=== PATIENT | male | born 1980 | race Caucasian/White ===

== ENCOUNTER 2017-07-15 23:02 | Inpatient (IN) | payer SELFPAY ==
[~2017-07-15] VITALS: Ht 175.3 cm; Wt 82.5 kg
[~2017-07-15 23:02] MED LIST: Z.0.NO CURRENT MEDS
[2017-07-15 23:06] VITALS: BP 134/89; PULSE 117; RESP 16; TEMP 97.7; O2SAT 95
[2017-07-15 23:42] VITALS: BP 139/97; PULSE 93; RESP 18; O2SAT 97
[2017-07-15 23:51] VITALS: O2SAT 96
[2017-07-16] VITALS (13 sets, daily range): BP systolic 95–132; BP diastolic 63–93; PULSE 76–97; RESP 16–29; TEMP 98–98.8; O2SAT 92–99
[2017-07-16] MEDS ORDERED: SODIUM CHLORIDE 0.9% FLUSH 10 ML FLUSH IVF PRN
[2017-07-16 00:18] LABS: AUTOMATED NEUTROPHIL # 2.5 TH/MM3 (1.8-7.7); BASOPHIL # 0.1 TH/MM3 (0-0.2); BASOPHIL % 1.3 % (0.0-2.0); EOSINOPHIL # 0.4 TH/MM3 (0-0.4); EOSINOPHIL % 6.8 % (0.0-4.0); HEMATOCRIT 48.2 % (39.0-51.0); LYMPH % 34.7 % (9.0-44.0); LYMPHOCYTE # 1.9 TH/MM3 (1.0-4.8); MEAN CELL VOLUME 95.9 FL (80.0-100.0); MEAN CORPUSCULAR HEMOGLOBIN 33.9 PG (27.0-34.0); MEAN CORPUSCULAR HGB CONC 35.3 % (32.0-36.0); MONO % 11.7 % (0.0-8.0); MONOCYTE # 0.7 TH/MM3 (0-0.9); NEUT % 45.5 % (16.0-70.0); PLATELET COUNT 238 TH/MM3 (150-450); RED BLOOD COUNT 5.02 MIL/MM3 (4.50-5.90); RED CELL DISTRIBUTION WIDTH 13.6 % (11.6-17.2); WHITE BLOOD COUNT 5.6 TH/MM3 (4.0-11.0)
[2017-07-16 00:22] LABS: BILIRUBIN, URINE NEG (NEG); BLOOD, URINE NEG (NEG); GLUCOSE,URINE NEG (NEG); KETONE, URINE NEG (NEG); NITRITE,URINE NEG (NEG); PH, URINE 5.5 (5.0-8.5); URINE COLOR LIGHT-YELLOW (YELLW/STRAW); URINE LEUKOCYTE ESTERASE NEG (NEG)
[2017-07-16 00:38] LABS: ALBUMIN 3.9 GM/DL (3.4-5.0); ALT (GPT) 50 U/L (12-78); AST (GOT) 32 U/L (15-37); BICARBONATE 23.7 MEQ/L (21.0-32.0); BLOOD UREA NITROGEN 5 MG/DL (7-18); CALCIUM 8.1 MG/DL (8.5-10.1); CHLORIDE 107 MEQ/L (98-107); CREATININE 0.84 MG/DL (0.60-1.30); GLOMERULAR FILTRATION RATE 103 ML/MIN (>89); GLUCOSE,RANDOM 104 MG/DL (74-106); SODIUM (NA) 140 MEQ/L (136-145)
[2017-07-16 00:41] LABS: ALKALINE PHOSPHATASE 69 U/L (45-117); TOTAL BILIRUBIN ADULT 0.4 MG/DL (0.2-1.0); TOTAL PROTEIN 7.8 GM/DL (6.4-8.2)
[2017-07-16 00:44] LABS: ACETAMINOPHEN LESS THAN 2.0 MCG/ML (10.0-30.0)
[2017-07-16] MEDS ORDERED: DEXT 5%-NACL 0.9% 1000 ML INJ 1,000 ML IV SCH (00:45)
[2017-07-16] MEDS ORDERED: SODIUM CHLOR 0.9% 1000 ML INJ 1,000 ML IV ONE (00:45)
[2017-07-16] MEDS ORDERED: PANTOPRAZOLE SODIUM 40 MG VIAL IV PUSH ONE (01:00)
--- NOTE | 2017-07-16 01:56 | PD ---
HPI Chief Complaint: OD/ Ingestion Time Seen by Provider: 23:49 Travel History International Travel<30 days: No Contact w/Intl Traveler<30days: No Traveled to known affect area: No History of Present Illness HPI Patient is a 36-year-old male who lives with his father who is a quadriplegic who has lots of isopropyl alcohol according to the patient and tonight the patient decided to drink he says 3 bottles of 70% isopropyl alcohol. He says he did it because he was depressed and thinking of hurting himself. He is awake alert denies vomiting no obvious GI injury no obvious obtunded state his intoxicated but able to converse and tell me the story of his ingestion. Denies coingestion PFSH Past Medical History Medical History: Denies Significant Hx Diabetes: No Diminished Hearing: Yes ([facility] RIGHT SIDE) Immunizations Current: Yes Past Surgical History Appendectomy: Yes (age 16) Social History Alcohol Use: Yes Tobacco Use: Yes (05/25-1 PPD) Substance Use: Yes (MARIJUANA) Allergies-Medications (Allergen,Severity, Reaction): Coded Allergies: No Known Allergies (Unverified Adverse Reaction, Unknown, 07/15/17) Reported Meds & Prescriptions Reported Meds & Active Scripts Active No Active Prescriptions or Reported Medications Review of Systems Except as stated in HPI: all other systems reviewed are Neg Physical Exam Narrative GENERAL: disheveled hair reddened face slurring SKIN: Warm and dry. warm red face HEAD: Atraumatic. Normocephalic. EYES: Pupils equal and round. No scleral icterus.+ injection . ENT: No nasal bleeding or discharge. Mucous membranes pink and moist. NECK: Trachea midline. No JVD. CARDIOVASCULAR: Regular rate and rhythm. RESPIRATORY: No accessory muscle use. Clear to auscultation. Breath sounds equal bilaterally. GASTROINTESTINAL: Abdomen soft, non-tender, nondistended. Hepatic and splenic margins not palpable. no active vomit or signs of GI tract injury from Isopropyl MUSCULOSKELETAL: Extremities without clubbing, cyanosis, or edema. No obvious deformities. NEUROLOGICAL: Awake and alert. No obvious cranial nerve deficits. Motor grossly within normal limits. Five out of 5 muscle strength in the arms and legs. slow slurred speech. PSYCHIATRIC: intox conversant depressed , sad affect Data Data Last Documented VS Vital Signs Date Time Temp Pulse Resp B/P (MAP) Pulse Ox O2 Delivery O2 Flow Rate FiO2 2/23/18 02:30 92 16 95/63 (74) 92 Room Air 07/15/17 23:06 97.7 Orders Orders Complete Blood Count With Diff (07/15/17 23:49) Comprehensive Metabolic Panel (07/15/17 23:49) Osmolality,Serum (07/15/17 23:49) Urinalysis - C+S If Indicated (07/15/17 23:49) Iv Access Insert/Monitor (07/15/17 23:49) Ecg Monitoring (07/15/17 23:49) Oximetry (07/15/17 23:49) Sodium Chloride 0.9% Flush (Ns Flush) (07/16/17 00:00) Drug Screen, Random Urine (07/15/17 23:49) Alcohol (Ethanol) (07/15/17 23:49) Salicylates (Aspirin) (07/15/17 23:49) Tylenol (Acetaminophen) (07/15/17 23:49) Sodium Chlor 0.9% 1000 Ml Inj (Ns 1000 M (07/16/17 00:45) Dext 5%-Nacl 0.9% 1000 Ml Inj (D5w-Ns 10 (07/16/17 00:45) Pantoprazole Inj (Protonix Inj) (07/16/17 01:00) Admit Order (Ed Use Only) (07/16/17 02:56) Labs Laboratory Tests Test 07/15/17 00:00 07/15/17 23:55 White Blood Count 5.6 TH/MM3 Red Blood Count 5.02 MIL/MM3 Hemoglobin 17.0 GM/DL Hematocrit 48.2 % Mean Corpuscular Volume 95.9 FL Mean Corpuscular Hemoglobin 33.9 PG Mean Corpuscular Hemoglobin Concent 35.3 % Red Cell Distribution Width 13.6 % Platelet Count 238 TH/MM3 Mean Platelet Volume 7.0 FL Neutrophils (%) (Auto) 45.5 % Lymphocytes (%) (Auto) 34.7 % Monocytes (%) (Auto) 11.7 % Eosinophils (%) (Auto) 6.8 % Basophils (%) (Auto) 1.3 % Neutrophils # (Auto) 2.5 TH/MM3 Lymphocytes # (Auto) 1.9 TH/MM3 Monocytes # (Auto) 0.7 TH/MM3 Eosinophils # (Auto) 0.4 TH/MM3 Basophils # (Auto) 0.1 TH/MM3 CBC Comment DIFF FINAL Differential Comment Blood Urea Nitrogen 5 MG/DL Creatinine 0.84 MG/DL Random Glucose 104 MG/DL Total Protein 7.8 GM/DL Albumin 3.9 GM/DL Calcium Level 8.1 MG/DL Alkaline Phosphatase 69 U/L Aspartate Amino Transf (AST/SGOT) 32 U/L Alanine Aminotransferase (ALT/SGPT) 50 U/L Total Bilirubin 0.4 MG/DL Sodium Level 140 MEQ/L Potassium Level 3.7 MEQ/L Chloride Level 107 MEQ/L Carbon Dioxide Level 23.7 MEQ/L Anion Gap 9 MEQ/L Estimat Glomerular Filtration Rate 103 ML/MIN Serum Osmolality 387 MOSM/KG Salicylates Level 2.5 MG/DL Acetaminophen Level LESS THAN 2.0 MCG/ML Ethyl Alcohol Level 376 MG/DL Urine Color LIGHT-YELLOW Urine Turbidity CLEAR Urine pH 5.5 Urine Specific [place] 1.006 Urine Protein NEG mg/dL Urine Glucose (UA) NEG mg/dL Urine Ketones NEG mg/dL Urine Occult Blood NEG Urine Nitrite NEG Urine Bilirubin NEG Urine Urobilinogen LESS THAN 2.0 MG/DL Urine Leukocyte Esterase NEG Urine RBC 1 /hpf Urine WBC LESS THAN 1 /hpf Microscopic Urinalysis Comment CULT NOT INDICATED Urine Opiates Screen NEG Urine Barbiturates Screen NEG Urine Amphetamines Screen NEG Urine Benzodiazepines Screen NEG Urine Cocaine Screen NEG Urine Cannabinoids Screen POS [facility] Medical Decision Making Medical Screen Exam Complete: Yes Emergency Medical Condition: Yes Differential Diagnosis isopropyl vs ethonal vs ethylene glycol vs methanol intox or sedative co-ingestion other Narrative Course Osmalality on serum 387 elevated and etoh alos high , pt has no signs of GI injury no vomit no hemataemesis , no obtunded state no need for airway management at this time , NS x 2 liters and protonix IV admit to assure no worsening of GI or mental status , ICU admit Diagnosis Primary Impression: Isopropyl alcohol poisoning Admitting Information Admitting Physician Requests: Admit (icu - voda) Scripts No Active Prescriptions or Reported Meds Justin Romero MD Jul 16, 2017 01:56
[2017-07-16] MEDS ORDERED: MAGNESIUM HYDROXIDE SUSP 30 ML CUP PO PRN (03:45)
[2017-07-16] MEDS ORDERED: MISCELLANEOUS NURSING INFORMATION XX SCH (03:45)
[2017-07-16] MEDS ORDERED: LACTULOSE SYRUP 20 GM/30 ML CUP PO PRN (03:45)
[2017-07-16] MEDS ORDERED: ONDANSETRON HCL 4 MG/2 ML VIAL IV PUSH PRN (03:45)
[2017-07-16] MEDS ORDERED: RESP: ALBUTEROL 2.5 MG/IPRATROPIUM 0.5 MG NEB (PRN) INH (03:45)
[2017-07-16] MEDS ORDERED: BISACODYL 10 MG SUPP RECTAL PRN (03:45)
[2017-07-16] MEDS ORDERED: ACETAMINOPHEN 325 MG TAB PO PRN (03:45)
[2017-07-16] MEDS ORDERED: SENNOSIDES 8.6 MG TAB PO PRN (03:45)
[2017-07-16] MEDS ORDERED: CHLORHEXIDINE GLUCONATE 2 % 1 PACK (2 CLOTHS) TOP PRN (03:45)
[2017-07-16] MEDS ORDERED: SODIUM CHLORIDE 0.9% FLUSH 10 ML FLUSH IV FLUSH PRN (03:45)
[2017-07-16] MEDS ORDERED: TEMAZEPAM 15 MG CAP PO PRN (03:45)
[2017-07-16] MEDS ORDERED: CHLORHEXIDINE GLUCONATE 2 % 1 PACK (2 CLOTHS) TOP SCH (04:00)
[2017-07-16] MEDS: SODIUM CHLOR 0.9% 1000 ML INJ 1,000 ML IV SCH ×3 (04:03→14:26)
[2017-07-16] MEDS ORDERED: LORazepam 2 MG/ML VIAL IV PUSH PRN ×4 (04:30)
[2017-07-16] MEDS ORDERED: FLUMAZENIL 0.5 MG/5 ML VIAL IV PUSH PRN (04:30)
[2017-07-16] MEDS ORDERED: LORazepam 1 MG TAB PO PRN (04:30)
[2017-07-16] MEDS ORDERED: LORazepam 2 MG TAB PO PRN (04:30)
--- NOTE | 2017-07-16 04:52 | HHI.HP ---
[facility] Service Critical Care Medicine Primary Care Physician Unknown Admission Diagnosis Isopropyl OVERDOSE Diagnosis: Travel History International Travel<30 Days: No Contact w/Intl Traveler <30 Da: No Traveled to Known Affected Are: No History of Present Illness 36-year-old male who lives with his father who is a quadriplegic who has lots of isopropyl alcohol according to the patient . The patient decided tonight to bring about 3 bottles of 70% isopropyl alcohol. He says he did it because he was depressed and thinking of hurting himself. He is awake alert denies vomiting no obvious GI injury no obvious obtunded state his intoxicated but able to converse and tell me the story of his ingestion. Denies coingestion. Review of Systems Constitutional: DENIES: Diaphoretic episodes, Fatigue, Fever, Weight gain, Weight loss, Chills, Dizziness, Change in appetite, Night Sweats Endocrine: DENIES: Heat/cold intolerance, Polydipsia, Polyuria, Polyphagia Eyes: DENIES: Blurred vision, Diplopia, Eye inflammation, Eye pain, Vision loss , Photosensitivity, Double Vision Ears, nose, mouth, throat: DENIES: Tinnitus, Hearing loss, Vertigo, Nasal discharge, Oral lesions, Throat pain, Hoarseness, Ear Pain, Running Nose, Epistaxis, Sinus Pain, Toothache, Odynophagia Respiratory: DENIES: Apneas, Cough, Snoring, Wheezing, Hemoptysis, Sputum production, Shortness of breath Cardiovascular: DENIES: Chest pain, Palpitations, Syncope, Dyspnea on Exertion , PND, Lower Extremity Edema, Orthopnea, Claudication Gastrointestinal: DENIES: Abdominal pain, Black stools, Bloody stools, Constipation, Diarrhea, Nausea, Vomiting, Difficulty Swallowing, Anorexia Genitourinary: DENIES: Sexual dysfunction, Urinary frequency, Urinary incontinence, Urgency, Hematuria, Dysuria, Nocturia, Penile Discharge, Testicular Pain, Testicular Swelling Musculoskeletal: DENIES: Joint pain, Muscle aches, Stiffness, Joint Swelling, Back pain, Neck pain Integumentary: DENIES: Abnormal pigmentation, Nail changes, Pruritus, Rash Hematologic/lymphatic: DENIES: Bruising, Lymphadenopathy Immunologic/allergic: DENIES: Eczema, Urticaria Neurologic: DENIES: Abnormal gait, Headache, Localized weakness, Paresthesias, Seizures, Speech Problems, Tremor, Poor Balance Psychiatric: COMPLAINS OF: Anxiety, Depression, Suicidal Ideation, DENIES: Confusion, Mood changes, Hallucinations, Agitation, Homicidal Ideation, Delusions Past Family Social History Allergies: Coded Allergies: No Known Allergies (Unverified Adverse Reaction, Unknown, 07/15/17) Past Medical History No significant past medical history Past Surgical History Appendectomy at the age of 16 Reported Medications Reported Meds & Active Scripts Active No Active Prescriptions or Reported Medications Active Ordered Medications Current Medications Medications (Trade) Dose Ordered Sig/Sherrill Route PRN Reason Start Time Stop Time Status Last Admin Dose Admin Sodium Chloride 1,000 ml @ 184 mls/hr Q5H27M IV 07/16/17 03:32 07/16/17 04:03 Sodium Chloride (NS Flush) 2 ml UNSCH PRN IV FLUSH FLUSH AFTER USING IV ACCESS 07/16/17 03:45 Sodium Chloride (NS Flush) 2 ml BID IV FLUSH 07/16/17 09:00 Acetaminophen (Tylenol) 650 mg Q6H PRN PO PAIN 1-10 AND/OR FEVER >101F 07/16/17 03:45 Famotidine (Pepcid Inj) 20 mg Q12HR IV PUSH 07/16/17 09:00 Ondansetron HCl (Zofran Inj) 4 mg Q6H PRN IV PUSH NAUSEA OR VOMITING 07/16/17 03:45 Temazepam (Restoril) 15 mg HS PRN PO INSOMNIA 07/16/17 03:45 Albuterol/ Ipratropium (Duoneb Neb) 1 ampule Q2HR NEB PRN INH WHEEZING 07/16/17 03:45 Heparin Sodium (Porcine) (Heparin Inj) 5,000 units Q8HR SQ 07/16/17 06:00 Miscellaneous Information 1 Q361D XX 07/16/17 03:45 07/16/17 03:45 Chlorhexidine Gluconate (Chlorhexidine 2% Cloth) 3 pack Taper DAILY@04 TOP 07/16/17 04:00 07/12/18 03:59 07/16/17 04:00 Chlorhexidine Gluconate (Chlorhexidine 2% Cloth) 3 pack UNSCH PRN TOP HYGIENIC CARE 07/16/17 03:45 Senna/Docusate Sodium (Malathi-Colace) 1 tab BID PO 07/16/17 09:00 Magnesium Hydroxide (Milk Of Magnesia Liq) 30 ml Q12H PRN PO Mild constipation 07/16/17 03:45 Sennosides (Senokot) 17.2 mg Q12H PRN PO Moderate constipation 07/16/17 03:45 Bisacodyl (Dulcolax Supp) 10 mg DAILY PRN RECTAL SEVERE CONSITIPATION 07/16/17 03:45 Lactulose (Lactulose Liq) 30 ml DAILY PRN PO SEVERE CONSITIPATION 07/16/17 03:45 Multivitamins 10 ml/Thiamine HCl 100 mg/Folic Acid 1 mg/Dextrose/ Sodium Chloride 511.2 ml @ 125 mls/hr Q24H IV 07/16/17 06:00 Flumazenil (Romazicon Inj) 0.2 mg Q1M PRN IV PUSH SEE LABEL COMMENTS 07/16/17 04:30 Lorazepam (Ativan) 1 mg Q4H PRN PO CIWA 8 - 10 07/16/17 04:30 Lorazepam (Ativan Inj) 1 mg Q4H PRN IV PUSH CIWA 8 - 10 07/16/17 04:30 Lorazepam (Ativan) 2 mg Q2H PRN PO CIWA 11-14 07/16/17 04:30 Lorazepam (Ativan Inj) 2 mg Q2H PRN IV PUSH CIWA 11-14 07/16/17 04:30 Lorazepam (Ativan Inj) 2 mg Q1H PRN IV PUSH CIWA 15-20 07/16/17 04:30 Lorazepam (Ativan Inj) 2 mg Q15M PRN IV PUSH CIWA > 20 07/16/17 04:30 Family History Family history significant for coronary artery disease, father is quadriplegic post trauma Social History Alcohol Use: Yes Tobacco Use: Yes (1/2-1 PPD) Substance Use: Yes (MARIJUANA) Physical Exam Vital Signs Vital Signs Date Time Temp Pulse Resp B/P (MAP) Pulse Ox O2 Delivery O2 Flow Rate FiO2 07/16/17 04:25 82 07/16/17 04:24 83 14 117/72 (87) 96 07/16/17 04:23 98.0 82 16 124/78 (93) 98 07/16/17 03:52 93 07/16/17 03:30 97 16 102/63 (76) 97 Room Air 07/16/17 02:30 92 16 95/63 (74) 92 Room Air 07/16/17 01:28 85 18 121/78 (92) 93 Room Air 07/15/17 23:51 96 Room Air 07/15/17 23:42 93 18 139/97 (111) 97 Room Air 07/15/17 23:06 97.7 117 16 134/89 (104) 95 Physical Exam GENERAL: Well-nourished, well-developed patient. SKIN: Warm and dry. HEAD: Normocephalic. EYES: No scleral icterus. No injection or drainage. NECK: Supple, trachea midline. No JVD or lymphadenopathy. CARDIOVASCULAR: Regular rate and rhythm without murmurs, gallops, or rubs. RESPIRATORY: Breath sounds equal bilaterally. No accessory muscle use. GASTROINTESTINAL: Abdomen soft, non-tender, nondistended. MUSCULOSKELETAL: No cyanosis, or edema. BACK: Nontender without obvious deformity. NEURO EXAM: GCS: 15 Mental Status: The patient is alert and oriented to person, place, and time with normal speech. Cranial Nerves: Visual acuity intact bilaterally. Visual dunbar normal in all quadrants. Pupils are round, reactive to light. Extraocular movements are intact without ptosis. Hearing is normal bilaterally. Voice is normal. Tongue protrudes midline and moves symmetrically. Laboratory Laboratory Tests Test 07/15/17 23:55 Urine Color LIGHT-YELLOW Urine Turbidity CLEAR Urine pH 5.5 Urine Specific [place] 1.006 Urine Protein NEG Urine Glucose (UA) NEG Urine Ketones NEG Urine Occult Blood NEG Urine Nitrite NEG Urine Bilirubin NEG Urine Urobilinogen LESS THAN 2.0 Urine Leukocyte Esterase NEG Urine RBC 1 Urine WBC LESS THAN 1 Microscopic Urinalysis Comment CULT NOT INDICATED Urine Opiates Screen NEG Urine Barbiturates Screen NEG Urine Amphetamines Screen NEG Urine Benzodiazepines Screen NEG Urine Cocaine Screen NEG Urine Cannabinoids Screen POS Result Diagram: 07/15/17 0000 07/15/17 0000 Septic Shock Reassessment Septic shock perfusion: reassessment completed Caprini VTE Risk Assessment Caprini VTE Risk Assessment: Mod/High Risk (score >= 2) Caprini Risk Assessment Model Point Value = 1 Point Value = 2 Point Value = 3 Point Value = 5 Age 41-60 Minor surgery BMI > 25 kg/m2 Swollen legs Varicose veins or History of unexplained or recurrent spontaneous Oral contraceptives or hormone replacement Sepsis (< 1 month) Serious lung disease, including pneumonia (< 1 month) Abnormal pulmonary function Acute myocardial infarction Congestive heart failure (< 1 month) History of inflammatory bowel disease Medical patient at bed rest Age 61-74 Arthroscopic surgery Major open surgery (> 45 min) Laparoscopic surgery (> 45 min) Malignancy Confined to bed (> 72 hours) Immobilizing plaster cast Central venous access Age >= 75 History of VTE Family history of VTE Factor V Leiden Prothrombin [id number] Lupus anticoagulant Anticardiolipin antibodies Elevated serum homocysteine Heparin-induced thrombocytopenia Other congenital or acquired thrombophilia Stroke (< 1 month) Elective arthroplasty Hip, pelvis, or leg fracture Acute spinal cord injury (< 1 month) Prophylaxis Regimen Total Risk Factor Score Risk Level Prophylaxis Regimen 0-1 Low Early ambulation 2 Moderate Order ONE of the following: *Sequential Compression Device (SCD) *Heparin 5000 units SQ BID 3-4 Higher Order ONE of the following medications: *Heparin 5000 units SQ TID *Enoxaparin/Lovenox 40 mg SQ daily (WT < 150 kg, CrCl > 30 mL/min) *Enoxaparin/Lovenox 30 mg SQ daily (WT < 150 kg, CrCl > 10-29 mL/min) *Enoxaparin/Lovenox 30 mg SQ BID (WT < 150 kg, CrCl > 30 mL/min) AND/OR *Sequential Compression Device (SCD) 5 or more Highest Order ONE of the following medications: *Heparin 5000 units SQ TID (Preferred with Epidurals) *Enoxaparin/Lovenox 40 mg SQ daily (WT < 150 kg, CrCl > 30 mL/min) *Enoxaparin/Lovenox 30 mg SQ daily (WT < 150 kg, CrCl > 10-29 mL/min) *Enoxaparin/Lovenox 30 mg SQ BID (WT < 150 kg, CrCl > 30 mL/min) AND *Sequential Compression Device (SCD) Assessment and Plan Assessment and Plan Isopropyl alcohol intoxication - Admit to ICU - Monitor serum osmolarity - IV fluid hydration - Monitor for neurological signs of stupor - Frequent electrolytes and replace per ICU protocol - Monitor for alcohol withdrawal - CIWA protocol - Supportive care Suicidal intention with depressions - Mao act - Psychiatry evaluation DVT GI prophylaxis - Teds SCDs - Subcutaneous heparin - Pepcid Critical Care: The total critical care time was 35 minutes. Time to perform other separately billable procedures was not included in the critical care time. Nathaniel Lopez MD Jul 16, 2017 4:52 am
[2017-07-16] MEDS: HEPARIN SODIUM - SQ 10,000 UNITS/ML VIAL SQ SCH ×2 (05:24→14:08)
[2017-07-16] MEDS ORDERED: MULTIVITAMIN INJ 10 ML, THIAMINE INJ 100 MG, FOLIC ACID INJ 1 MG in DEXT 5%-NACL 0.45% ... IV SCH (06:00)
[2017-07-16] MEDS ORDERED: FAMOTIDINE 20 MG/2 ML VIAL IV PUSH SCH (09:00)
[2017-07-16] MEDS ORDERED: DOCUSATE SODIUM 50 MG/SENNA 8.6 MG TAB PO SCH (09:00)
[2017-07-16] MEDS ORDERED: SODIUM CHLORIDE 0.9% FLUSH 10 ML FLUSH IV FLUSH SCH (09:00)
--- NOTE | 2017-07-16 12:03 | PD.PSY.CON ---
Provisional Diagnosis Admission Date Jul 16, 2017 at 02:59 [place] I. Alcohol induced mood disorder, Alcohol use disorder, cannabis use disorder, history of depression [place] II. Unspecified personality disorder History of Present Illness Service Psychiatry Consult Requested By Critical care team Reason for Consult On the Cavanaugh act due to suicidal ideation Primary Care Physician Unknown HPI The patient is a 36-year-old man, domiciled alone in [facility], single, unemployed, with psychiatric history of depression, about 3 previous psychiatric hospitalizations related with alcohol, self cutting behavior, he lives with his father who is a quadriplegic who has lots of isopropyl alcohol according to the patient . The patient decided tonight to bring about 3 bottles of 70% isopropyl alcohol. Consulted to psychiatry to address potential suicidal attempt. On psychiatric evaluation today the patient reports feeling much better. He denies having any pain. He says that previously he was having a lot of headache and chest pain. But now is better. Patient reports that he has been feeling depressed, due to several problems including homelessness, economic oh issues, family issues. However, he denies suicidal and homicidal ideation, he denies visual and auditory hallucinations. The patient reports that his recent use of isopropyl alcohol had to be with the fact that he did not have any money to drink more alcohol "and when I cannot drink alcohol at would really wherever I find". Patient reports drinking about 18 beers per day. He states that he first beer is a 5 AM in the morning. Patient reports history of withdrawal, seizures, DTs. He also has been in multiple detox or rehabs. He is fully oriented 3, logical, coherent and relevant. Review of Systems Constitutional: DENIES: Diaphoretic episodes, Fatigue, Fever, Weight gain, Weight loss, Chills, Dizziness, Change in appetite, Night Sweats Endocrine: DENIES: Heat/cold intolerance, Polydipsia, Polyuria, Polyphagia Eyes: DENIES: Blurred vision, Diplopia, Eye inflammation, Eye pain, Vision loss , Photosensitivity, Double Vision Ears, nose, mouth, throat: DENIES: Tinnitus, Hearing loss, Vertigo, Nasal discharge, Oral lesions, Throat pain, Hoarseness, Ear Pain, Running Nose, Epistaxis, Sinus Pain, Toothache, Odynophagia Respiratory: DENIES: Apneas, Cough, Snoring, Wheezing, Hemoptysis, Sputum production, Shortness of breath Cardiovascular: DENIES: Chest pain, Palpitations, Syncope, Dyspnea on Exertion , PND, Lower Extremity Edema, Orthopnea, Claudication Gastrointestinal: DENIES: Abdominal pain, Black stools, Bloody stools, Constipation, Diarrhea, Nausea, Vomiting, Difficulty Swallowing, Anorexia Genitourinary: DENIES: Sexual dysfunction, Urinary frequency, Urinary incontinence, Urgency, Hematuria, Dysuria, Nocturia, Penile Discharge, Testicular Pain, Testicular Swelling Musculoskeletal: DENIES: Joint pain, Muscle aches, Stiffness, Joint Swelling, Back pain, Neck pain Integumentary: DENIES: Abnormal pigmentation, Nail changes, Pruritus, Rash Hematologic/lymphatic: DENIES: Bruising, Lymphadenopathy Immunologic/allergic: DENIES: Eczema, Urticaria Neurologic: DENIES: Abnormal gait, Headache, Localized weakness, Paresthesias, Seizures, Speech Problems, Tremor, Poor Balance Psychiatric: DENIES: Anxiety, Confusion, Mood changes, Depression, Hallucinations, Agitation, Suicidal Ideation, Homicidal Ideation, Delusions Past Family Social History Coded Allergies: No Known Allergies (Unverified Adverse Reaction, Unknown, 07/15/17) No Active Prescriptions or Reported Meds Current Medications Medications (Trade) Dose Ordered Sig/Sherrill Route Start Time Stop Time Status Last Admin Sodium Chloride 1,000 ml @ 184 mls/hr Q5H27M IV 07/16/17 03:32 07/16/17 10:14 (NS Flush) 2 ml UNSCH PRN IV FLUSH 07/16/17 03:45 (NS Flush) 2 ml BID IV FLUSH 07/16/17 09:00 07/16/17 10:14 (Tylenol) 650 mg Q6H PRN PO 07/16/17 03:45 07/16/17 10:13 (Pepcid Inj) 20 mg Q12HR IV PUSH 07/16/17 09:00 07/16/17 10:14 (Zofran Inj) 4 mg Q6H PRN IV PUSH 07/16/17 03:45 07/16/17 10:26 (Restoril) 15 mg HS PRN PO 07/16/17 03:45 (Duoneb Neb) 1 ampule Q2HR NEB PRN INH 07/16/17 03:45 (Heparin Inj) 5,000 units Q8HR SQ 07/16/17 06:00 07/16/17 05:24 Miscellaneous Information 1 Q361D XX 07/16/17 03:45 07/16/17 03:45 (Chlorhexidine 2% Cloth) 3 pack Taper DAILY@04 TOP 07/16/17 04:00 07/12/18 03:59 07/16/17 04:00 (Chlorhexidine 2% Cloth) 3 pack UNSCH PRN TOP 07/16/17 03:45 (Malathi-Colace) 1 tab BID PO 07/16/17 09:00 (Milk Of Magnesia Liq) 30 ml Q12H PRN PO 07/16/17 03:45 (Senokot) 17.2 mg Q12H PRN PO 07/16/17 03:45 (Dulcolax Supp) 10 mg DAILY PRN RECTAL 07/16/17 03:45 (Lactulose Liq) 30 ml DAILY PRN PO 07/16/17 03:45 Multivitamins 10 ml/Thiamine HCl 100 mg/Folic Acid 1 mg/Dextrose/ Sodium Chloride 511.2 ml @ 125 mls/hr Q24H IV 07/16/17 06:00 07/16/17 05:24 (Romazicon Inj) 0.2 mg Q1M PRN IV PUSH 07/16/17 04:30 (Ativan) 1 mg Q4H PRN PO 07/16/17 04:30 (Ativan Inj) 1 mg Q4H PRN IV PUSH 07/16/17 04:30 07/16/17 10:45 (Ativan) 2 mg Q2H PRN PO 07/16/17 04:30 (Ativan Inj) 2 mg Q2H PRN IV PUSH 07/16/17 04:30 (Ativan Inj) 2 mg Q1H PRN IV PUSH 07/16/17 04:30 (Ativan Inj) 2 mg Q15M PRN IV PUSH 07/16/17 04:30 Family Psych History Family psychiatric history Social History Patient was born in [place], he doesn't [place] with his father, his single , unemployed, highest level of education is GED Patient's Strengths (min. 2) Verbal communication Physical Exam Vital Signs Vital Signs Date Time Temp Pulse Resp B/P (MAP) Pulse Ox O2 Delivery O2 Flow Rate FiO2 07/16/17 11:23 18 07/16/17 10:00 76 07/16/17 08:00 98.5 103/65 (78) 99 2/23/18 03:30 Room Air I/O 07/16/17 07/16/17 07/17/17 08:00 16:00 00:00 Intake Total 1250 ml Output Total 0 ml Balance 1250 ml Lab Results Test 07/15/17 23:55 07/16/17 04:25 Urine Color LIGHT-YELLOW Urine Turbidity CLEAR Urine pH 5.5 Urine Specific [place] 1.006 Urine Protein NEG mg/dL Urine Glucose (UA) NEG mg/dL Urine Ketones NEG mg/dL Urine Occult Blood NEG Urine Nitrite NEG Urine Bilirubin NEG Urine Urobilinogen LESS THAN 2.0 MG/DL Urine Leukocyte Esterase NEG Urine RBC 1 /hpf Urine WBC LESS THAN 1 /hpf Microscopic Urinalysis Comment CULT NOT INDICATED Urine Opiates Screen NEG Urine Barbiturates Screen NEG Urine Amphetamines Screen NEG Urine Benzodiazepines Screen NEG Urine Cocaine Screen NEG Urine Cannabinoids Screen POS Nasal Screen MRSA (PCR) MRSA NOT DETECTED Mental Status Examination Appearance: Appropriate Consciousness: Alert Orientation: x4 Motor Activity: Normal gait Speech: Unremarkable Language: Adequate Fund of Knowledge: Adequate Attention and Concentration: Adequate Memory: Unremarkable Mood: Appropriate Affect: Appropriate Thought Process & Associations: Intact Thought Content: Appropriate Hallucination Type: None Delusion Type: None Suicidal Ideation: No Suicidal Plan: No Suicidal Intention: No Homicidal Ideation: No Homicidal Plan: No Homicidal Intention: No Insight: Adequate Judgment: Adequate Assessment & Plan Problem List: (1) Alcohol abuse with alcohol-induced mood disorder ICD Codes: F10.14 - Alcohol abuse with alcohol-induced mood disorder Assessment & Plan: On psychiatric evaluation today the patient does not present significant, concerning symptomatology of depression, anxiety or psychosis that require an immediate psychiatric intervention. His current suicidal statement and reported depression is worse for the result of chronic registered medical assistant alcohol abuse and a recent alcohol intoxication. The patient really benefit of a detox or comprehensive rehabilitation. He does not meet criteria for involuntary psychiatric admission at this moment. Continue CIWA. Motivation and psychoeducation provided. Cavanaugh act will be lifted. Assessment & Plan Estimated LOS: Anival Perez MD Jul 16, 2017 12:03
--- NOTE | 2017-07-16 12:16 | HHI.PYPN ---
Subjective Remarks The patient was seen for psychiatric care by me this morning. However he was reassessed by Dr. Soto before being discharged and the patient restated that he was suicidal and he wanted to kill himself. Dr. Soto called me and expressed his concern about the safety of this patient. We both agree that the patient benefit of involuntary psychiatric admission for longitudinal observation, stabilization and safety. Mental Status Examination Appearance: Appropriate Consciousness: Alert Orientation: x4 Motor Activity: Normal gait Speech: Unremarkable Language: Adequate Fund of Knowledge: Adequate Attention and Concentration: Adequate Memory: Unremarkable Mood: Appropriate Affect: Appropriate Thought Process & Associations: Intact Thought Content: Appropriate Hallucination Type: None Delusion Type: None Suicidal Ideation: Yes Suicidal Plan: Yes Suicidal Intention: No Homicidal Ideation: No Homicidal Plan: No Homicidal Intention: No Insight: Adequate Judgment: Adequate Results Labs Test 07/15/17 23:55 07/16/17 04:25 07/16/17 11:49 Urine Color LIGHT-YELLOW Urine Turbidity CLEAR Urine pH 5.5 Urine Specific [place] 1.006 Urine Protein NEG mg/dL Urine Glucose (UA) NEG mg/dL Urine Ketones NEG mg/dL Urine Occult Blood NEG Urine Nitrite NEG Urine Bilirubin NEG Urine Urobilinogen LESS THAN 2.0 MG/DL Urine Leukocyte Esterase NEG Urine RBC 1 /hpf Urine WBC LESS THAN 1 /hpf Microscopic Urinalysis Comment CULT NOT INDICATED Urine Opiates Screen NEG Urine Barbiturates Screen NEG Urine Amphetamines Screen NEG Urine Benzodiazepines Screen NEG Urine Cocaine Screen NEG Urine Cannabinoids Screen POS Nasal Screen MRSA (PCR) MRSA NOT DETECTED Vitals/IOs Vital Signs Date Time Temp Pulse Resp B/P (MAP) Pulse Ox O2 Delivery O2 Flow Rate FiO2 07/16/17 11:23 18 07/16/17 10:00 76 07/16/17 08:00 98.5 103/65 (78) 99 07/16/17 03:30 Room Air Intake and Output 07/16/17 07/16/17 07/17/17 08:00 16:00 00:00 Intake Total 1250 ml Output Total 0 ml Balance 1250 ml Assessment & Plan Problem List: (1) Alcohol abuse with alcohol-induced mood disorder ICD Codes: F10.14 - Alcohol abuse with alcohol-induced mood disorder Assessment & Plan: Transfer patient to psychiatry once medically clear. Continue CIWA protocol. Assessment & Plan Estimated LOS: days Justification for Cont. Inpt. Patient needs psychiatric admission for safety and stabilization. Anival Rice MD Jul 16, 2017 12:16
== END 2017-07-16 17:00 | disposition left against medical advice (07) | DRG 918 ==
LOC: NEPC 23:02 → NEDA 07-16 02:59 → HIMW 07-16 04:15
PROVIDERS: ADMIT Internal Medicine Critical Care Medicine; ATTEND Internal Medicine Critical Care Medicine
DX: T51.2X2A Toxic effect of 2-Propanol, intentional self-harm, initial encounter (principal); F10.14 Alcohol abuse with alcohol-induced mood disorder; F10.129 Alcohol abuse with intoxication, unspecified; F17.210 Nicotine dependence, cigarettes, uncomplicated; F12.90 Cannabis use, unspecified, uncomplicated; Y90.8 Blood alcohol level of 240 mg/100 ml or more; H91.91 Unspecified hearing loss, right ear; Z59.0 Homelessness
CPT/HCPCS: 80053; 80307; 81001; 83930; 85025; 87641; 96361; 96374; 99285; C9113; J1644; J2060; J2405; J3411; J7030; J7042

== ENCOUNTER 2017-07-27 01:15 | Inpatient (IN) | payer SELFPAY ==
[2017-07-27] VITALS (10 sets, daily range): BP systolic 107–140; BP diastolic 68–95; PULSE 74–104; RESP 14–22; TEMP 97.6–98.7; O2SAT 96–99
[~2017-07-27] VITALS: Ht 172.7 cm; Wt 86.3 kg
[2017-07-27] MEDS ORDERED: SODIUM CHLOR 0.9% 1000 ML INJ 1,000 ML IV ONE ×3 (01:45→05:45)
[2017-07-27 01:58] LABS: AUTOMATED NEUTROPHIL # 2.9 TH/MM3 (1.8-7.7); BASOPHIL % 0.6 % (0.0-2.0); EOSINOPHIL # 0.2 TH/MM3 (0-0.4); EOSINOPHIL % 2.6 % (0.0-4.0); HEMATOCRIT 47.2 % (39.0-51.0); HEMOGLOBIN 16.7 GM/DL (13.0-17.0); LYMPH % 36.1 % (9.0-44.0); LYMPHOCYTE # 2.2 TH/MM3 (1.0-4.8); MEAN CELL VOLUME 95.9 FL (80.0-100.0); MEAN CORPUSCULAR HGB CONC 35.4 % (32.0-36.0); MEAN PLATELET VOLUME 7.3 FL (7.0-11.0); MONOCYTE # 0.8 TH/MM3 (0-0.9); NEUT % 47.7 % (16.0-70.0); PLATELET COUNT 170 TH/MM3 (150-450); RED BLOOD COUNT 4.93 MIL/MM3 (4.50-5.90); RED CELL DISTRIBUTION WIDTH 13.5 % (11.6-17.2); WHITE BLOOD COUNT 6.1 TH/MM3 (4.0-11.0)
[2017-07-27 02:15] LABS: BILIRUBIN, URINE NEG (NEG); BLOOD, URINE NEG (NEG); GLUCOSE,URINE NEG (NEG); KETONE, URINE NEG (NEG); NITRITE,URINE NEG (NEG); PH, URINE 5.5 (5.0-8.5); URINE COLOR LIGHT-YELLOW (YELLW/STRAW); URINE LEUKOCYTE ESTERASE NEG (NEG)
[2017-07-27 02:35] LABS: ALKALINE PHOSPHATASE 70 U/L (45-117); TOTAL BILIRUBIN ADULT 0.3 MG/DL (0.2-1.0); TOTAL PROTEIN 7.5 GM/DL (6.4-8.2)
[2017-07-27 02:36] LABS: ALBUMIN 3.7 GM/DL (3.4-5.0); ALT (GPT) 211 U/L (12-78); AST (GOT) 145 U/L (15-37); BICARBONATE 23.7 MEQ/L (21.0-32.0); BLOOD UREA NITROGEN 7 MG/DL (7-18); CALCIUM 7.7 MG/DL (8.5-10.1); CHLORIDE 109 MEQ/L (98-107); CREATININE 0.87 MG/DL (0.60-1.30); GLOMERULAR FILTRATION RATE 99 ML/MIN (>89); GLUCOSE,RANDOM 92 MG/DL (74-106); SODIUM (NA) 141 MEQ/L (136-145)
[2017-07-27 02:37] LABS: ACETAMINOPHEN LESS THAN 2.0 MCG/ML (10.0-30.0)
--- NOTE | 2017-07-27 04:10 | PD ---
HPI Chief Complaint: Suicide Ideation/Attempt Time Seen by Provider: 01:57 Travel History International Travel<30 days: No Contact w/Intl Traveler<30days: No Traveled to known affect area: No History of Present Illness HPI 36-year-old white male presents emergency department by EMS after ingesting rubbing alcohol. The patient is intoxicated. The history is not obtainable at this time. The patient is able to say that he did drink rubbing alcohol approximately 2-3 hours prior to arrival. He admits to suicidal ideation. This is the patient's second visit in 2 weeks for similar episode. [facility] Past Medical History Medical History: Unable to Obtain Diabetes: No Diminished Hearing: Yes ([facility] RIGHT SIDE) Immunizations Current: Yes Tetanus Vaccination: Unknown Past Surgical History Abdominal Surgery: Yes (appedix) Appendectomy: Yes (age 16) Other Surgery: Yes Social History Alcohol Use: Yes Tobacco Use: Yes (05/25- PPD) Substance Use: Yes (MARIJUANA) Allergies-Medications (Allergen,Severity, Reaction): Coded Allergies: No Known Allergies (Unverified Adverse Reaction, Unknown, 07/15/17) Reported Meds & Prescriptions Reported Meds & Active Scripts Active No Active Prescriptions or Reported Medications Review of Systems ROS Limitations: Intoxication Physical Exam Narrative GENERAL: Well-nourished, well-developed patient. Patient is intoxicated. SKIN: Warm and dry. HEAD: Normocephalic and atraumatic. EYES: No scleral icterus. Positive injection no drainage. Positive nystagmus ENT: No nasal drainage noted. Mucous membranes pink. Airway patent. NECK: Supple, trachea midline. Moves head freely without obvious discomfort. CARDIOVASCULAR: Regular tachycardic rate and rhythm without murmurs, gallops, or rubs. RESPIRATORY: Breath sounds equal bilaterally. No accessory muscle use. GASTROINTESTINAL: Abdomen soft, non-tender, nondistended. EXTREMITIES: No cyanosis or edema. BACK: Nontender without obvious deformity. No CVA tenderness. NEURO: Patient is alert and oriented to person. no sensorimotor deficits. Ataxic. Slurred speech. PSYCH: No delusions. No auditory or visual hallucinations. Data Data Last Documented VS Vital Signs Date Time Temp Pulse Resp B/P (MAP) Pulse Ox O2 Delivery O2 Flow Rate FiO2 07/27/17 03:44 80 16 119/78 (92) 97 Room Air 07/27/17 01:25 97.6 Orders Orders Complete Blood Count With Diff (07/27/17 01:35) Comprehensive Metabolic Panel (07/27/17 01:35) Thyroid Stimulating Hormone (07/27/17 01:35) Urinalysis - C+S If Indicated (07/27/17 01:35) Iv Access Insert/Monitor (07/27/17 01:35) Ecg Monitoring (07/27/17 01:35) Psych Screen (07/27/17 01:35) Drug Screen, Random Urine (07/27/17 01:35) Alcohol (Ethanol) (07/27/17 01:35) Salicylates (Aspirin) (07/27/17 01:35) Tylenol (Acetaminophen) (07/27/17 01:35) Osmolality,Serum (07/27/17 01:35) Sodium Chlor 0.9% 1000 Ml Inj (Ns 1000 M (07/27/17 01:45) Electrocardiogram (07/27/17 03:46) Prothrombin Time / Inr (Pt) (07/27/17 03:46) Act Partial Throm Time (Ptt) (07/27/17 03:46) Beta Hydroxybutyrate (Acetone) (07/27/17 03:46) Admit To Inpatient (07/27/17 ) Code Status (07/27/17 04:24) Vital Signs (Adult) STALIN.Q1H (07/27/17 04:24) Activity Bed Rest (07/27/17 04:24) Elevate Head Of Bed (07/27/17 04:24) Neuro Checks . ORDERED (07/27/17 04:24) Intake + Output Q1H (07/27/17 04:24) Bedside Glucose STALIN.BGM (07/27/17 04:24) Insert Ng Tube (07/27/17 04:24) Diet Npo (07/27/17 Breakfast) Sodium Chlor 0.9% 1000 Ml Inj (Ns 1000 M (07/27/17 04:24) Sodium Chloride 0.9% Flush (Ns Flush) (07/27/17 04:30) Sodium Chloride 0.9% Flush (Ns Flush) (07/27/17 09:00) Famotidine Inj (Pepcid Inj) (07/27/17 09:00) Artificial Tears Opth Soln (Tears Natura (07/27/17 09:00) Ondansetron Inj (Zofran Inj) (07/27/17 04:30) Albuterol-Ipratropium Neb (Duoneb Neb) (07/27/17 10:00) Albuterol Neb (Albuterol Neb) (07/27/17 04:30) Complete Blood Count With Diff (07/28/17 04:00) Comprehensive Metabolic Panel (07/28/17 04:00) Troponin I (07/27/17 04:24) Troponin I (07/27/17 10:24) Act Partial Throm Time (Ptt) (07/28/17 04:00) Prothrombin Time / Inr (Pt) (07/28/17 04:00) Magnesium (Mg) (07/28/17 04:00) Phosphorus (Po4) (07/28/17 04:00) Lactic Acid (07/28/17 04:00) Electrocardiogram (07/27/17 ) Resp Incentive Spirometry (07/27/17 ) Resp Oxygen Edilberto C Titrat 1-4 L (07/27/17 ) Pt Request For Service (07/27/17 04:24) Piercing Specialist / Telemetry STALIN.Q8H (07/27/17 04:24) Heparin Inj (Heparin Inj) (07/27/17 04:30) Scd Bilateral/Knee High STALIN.BID (07/27/17 04:24) ^ Initiate Protocol (07/27/17 04:24) Instruction (07/27/17 04:24) Misc Nursing Information (07/27/17 04:30) Chlorhexidine 2% Cloth (Chlorhexidine 2% (07/28/17 04:00) Chlorhexidine 2% Cloth (Chlorhexidine 2% (07/27/17 04:30) Mrsa Pcr Surveillance (07/27/17 04:24) Docusate Sodium-Senna (Malathi-Colace) (07/27/17 09:00) Magnesium Hydroxide Liq (Milk Of Magnesi (07/27/17 04:30) Sennosides (Senokot) (07/27/17 04:30) Bisacodyl Supp (Dulcolax Supp) (07/27/17 04:30) Lactulose Liq (Lactulose Liq) (07/27/17 04:30) Inpatient Certification (07/27/17 ) Ns (Bolus) Inj (07/27/17 04:30) Admit Order (Ed Use Only) (07/27/17 ) Piercing Specialist / Telemetry STALIN.Q8H (07/27/17 04:25) Vital Signs (Adult) Q4H (07/27/17 04:25) Activity Bed Rest (07/27/17 04:25) Basic Metabolic Panel (Bmp) (07/27/17 09:00) Basic Metabolic Panel (Bmp) (07/27/17 15:00) Basic Metabolic Panel (Bmp) (07/27/17 21:00) Osmolality, Urine (07/27/17 09:00) Osmolality, Urine (07/27/17 15:00) Osmolality, Urine (07/27/17 21:00) Osmolality,Serum (07/27/17 09:00) Osmolality,Serum (07/27/17 15:00) Osmolality,Serum (07/27/17 21:00) Beta Hydroxybutyrate (Acetone) (07/27/17 09:00) Beta Hydroxybutyrate (Acetone) (07/27/17 15:00) Beta Hydroxybutyrate (Acetone) (07/27/17 21:00) Labs Laboratory Tests Test 07/27/17 01:40 07/27/17 02:03 07/27/17 04:10 White Blood Count 6.1 TH/MM3 Red Blood Count 4.93 MIL/MM3 Hemoglobin 16.7 GM/DL Hematocrit 47.2 % Mean Corpuscular Volume 95.9 FL Mean Corpuscular Hemoglobin 34.0 PG Mean Corpuscular Hemoglobin Concent 35.4 % Red Cell Distribution Width 13.5 % Platelet Count 170 TH/MM3 Mean Platelet Volume 7.3 FL Neutrophils (%) (Auto) 47.7 % Lymphocytes (%) (Auto) 36.1 % Monocytes (%) (Auto) 13.0 % Eosinophils (%) (Auto) 2.6 % Basophils (%) (Auto) 0.6 % Neutrophils # (Auto) 2.9 TH/MM3 Lymphocytes # (Auto) 2.2 TH/MM3 Monocytes # (Auto) 0.8 TH/MM3 Eosinophils # (Auto) 0.2 TH/MM3 Basophils # (Auto) 0.0 TH/MM3 CBC Comment DIFF FINAL Differential Comment Blood Urea Nitrogen 7 MG/DL Creatinine 0.87 MG/DL Random Glucose 92 MG/DL Total Protein 7.5 GM/DL Albumin 3.7 GM/DL Calcium Level 7.7 MG/DL Alkaline Phosphatase 70 U/L Aspartate Amino Transf (AST/SGOT) 145 U/L Alanine Aminotransferase (ALT/SGPT) 211 U/L Total Bilirubin 0.3 MG/DL Sodium Level 141 MEQ/L Potassium Level 3.8 MEQ/L Chloride Level 109 MEQ/L Carbon Dioxide Level 23.7 MEQ/L Anion Gap 8 MEQ/L Estimat Glomerular Filtration Rate 99 ML/MIN Serum Osmolality 392 MOSM/KG Thyroid Stimulating Hormone 3rd Gen 0.720 uIU/ML Salicylates Level LESS THAN 1.7 MG/DL Acetaminophen Level LESS THAN 2.0 MCG/ML Ethyl Alcohol Level 373 MG/DL Urine Color LIGHT-YELLOW Urine Turbidity CLEAR Urine pH 5.5 Urine Specific [place] 1.006 Urine Protein NEG mg/dL Urine Glucose (UA) NEG mg/dL Urine Ketones NEG mg/dL Urine Occult Blood NEG Urine Nitrite NEG Urine Bilirubin NEG Urine Urobilinogen LESS THAN 2.0 MG/DL Urine Leukocyte Esterase NEG Urine RBC LESS THAN 1 /hpf Urine WBC LESS THAN 1 /hpf Microscopic Urinalysis Comment CULT NOT INDICATED Urine Opiates Screen NEG Urine Barbiturates Screen NEG Urine Amphetamines Screen NEG Urine Benzodiazepines Screen NEG Urine Cocaine Screen NEG Urine Cannabinoids Screen POS MDM Medical Decision Making Medical Screen Exam Complete: Yes Emergency Medical Condition: Yes Medical Record Reviewed: Yes Interpretation(s) Laboratory Tests Test 07/27/17 01:40 07/27/17 02:03 White Blood Count 6.1 TH/MM3 Red Blood Count 4.93 MIL/MM3 Hemoglobin 16.7 GM/DL Hematocrit 47.2 % Mean Corpuscular Volume 95.9 FL Mean Corpuscular Hemoglobin 34.0 PG Mean Corpuscular Hemoglobin Concent 35.4 % Red Cell Distribution Width 13.5 % Platelet Count 170 TH/MM3 Mean Platelet Volume 7.3 FL Neutrophils (%) (Auto) 47.7 % Lymphocytes (%) (Auto) 36.1 % Monocytes (%) (Auto) 13.0 % Eosinophils (%) (Auto) 2.6 % Basophils (%) (Auto) 0.6 % Neutrophils # (Auto) 2.9 TH/MM3 Lymphocytes # (Auto) 2.2 TH/MM3 Monocytes # (Auto) 0.8 TH/MM3 Eosinophils # (Auto) 0.2 TH/MM3 Basophils # (Auto) 0.0 TH/MM3 CBC Comment DIFF FINAL Differential Comment Blood Urea Nitrogen 7 MG/DL Creatinine 0.87 MG/DL Random Glucose 92 MG/DL Total Protein 7.5 GM/DL Albumin 3.7 GM/DL Calcium Level 7.7 MG/DL Alkaline Phosphatase 70 U/L Aspartate Amino Transf (AST/SGOT) 145 U/L Alanine Aminotransferase (ALT/SGPT) 211 U/L Total Bilirubin 0.3 MG/DL Sodium Level 141 MEQ/L Potassium Level 3.8 MEQ/L Chloride Level 109 MEQ/L Carbon Dioxide Level 23.7 MEQ/L Anion Gap 8 MEQ/L Estimat Glomerular Filtration Rate 99 ML/MIN Serum Osmolality 392 MOSM/KG Thyroid Stimulating Hormone 3rd Gen 0.720 uIU/ML Salicylates Level LESS THAN 1.7 MG/DL Acetaminophen Level LESS THAN 2.0 MCG/ML Ethyl Alcohol Level 373 MG/DL Urine Color LIGHT-YELLOW Urine Turbidity CLEAR Urine pH 5.5 Urine Specific [place] 1.006 Urine Protein NEG mg/dL Urine Glucose (UA) NEG mg/dL Urine Ketones NEG mg/dL Urine Occult Blood NEG Urine Nitrite NEG Urine Bilirubin NEG Urine Urobilinogen LESS THAN 2.0 MG/DL Urine Leukocyte Esterase NEG Urine RBC LESS THAN 1 /hpf Urine WBC LESS THAN 1 /hpf Microscopic Urinalysis Comment CULT NOT INDICATED Urine Opiates Screen NEG Urine Barbiturates Screen NEG Urine Amphetamines Screen NEG Urine Benzodiazepines Screen NEG Urine Cocaine Screen NEG Urine Cannabinoids Screen POS Differential Diagnosis MDM: High Differential diagnoses: Schizophrenia, schizoaffective disorder, bipolar, anxiety, depression, adjustment reaction, mood disorder NOS, ODD, depressive disorder NOS, dementia, dementia with agitation, psychosis NOS, substance induced mood disorder, DMDD, Asperger syndrome, infection,electrolyte abnormality, malingering. Narrative Course Mental health screening discussed with the patient. Psychiatric screen ordered. Patient is given 2 L of normal saline, he is on the monitor. Laboratory tests sent for analysis. Patient is monitored for aspiration. Case has been discussed with Apolonia from poison control. She is aware of the laboratory testing. She has requested coags, urine and/or serum acetone, urine for crystals. She has requested that 6 hours after initial blood draw that we repeat the patient's basic metabolic panel, serum osmolarity, urine, as well as acetone levels. She would like to be notified of the results. This is isopropyl alcohol ingestion, intoxication, intentional overdose. The case has been discussed with Dr. Simon who is agreed to admit the patient to the unit. Diagnosis Primary Impression: Isopropyl alcohol ingestion Additional Impressions: Intoxication Intentional overdose Admitting Information Admitting Physician Requests: Observation Scripts No Active Prescriptions or Reported Meds Condition: Edin Almonte Jul 27, 2017 04:10
[2017-07-27] MEDS: SODIUM CHLOR 0.9% 1000 ML INJ 1,000 ML IV SCH ×2 (04:24→13:42)
--- NOTE | 2017-07-27 04:29 | HHI.HP ---
[facility] Service Critical Care Medicine Primary Care Physician No Primary Care Physician Admission Diagnosis Isopropyl alcohol ingestion, intentional overdose Diagnosis: (1) Alcohol abuse Diagnosis: Principal (2) Tetrahydrocannabinol (THC) use disorder, mild, abuse Diagnosis: Principal (3) Isopropyl alcohol poisoning Diagnosis: Principal (4) H/O isopropyl alcohol poisoning Diagnosis: Principal (5) Elevated levels of transaminase & lactic acid dehydrogenase Diagnosis: Principal (6) Alcohol abuse with alcohol-induced mood disorder Diagnosis: Principal Chief Complaint: Cavanaugh act. Alcohol abuse. Travel History International Travel<30 Days: No Contact w/Intl Traveler <30 Da: No Traveled to Known Affected Are: No History of Present Illness This is a 36-year-old male. Date of admission 07/28/2007. Past medical history includes alcohol abuse. Patient drinks between 6 and 12 beers daily. Patient lives with his father who is a quadriplegic who has lots of isopropyl alcohol. He decided to drink 3 bottles of 70% isopropyl alcohol similar to an episode 07/16/2017. He did this because he wanted to "end it". Patient's alcohol level is 373. Patient received 2 L normal saline in the ED. Serum osmolarity was 392. Transaminases were elevated. Patient received thiamine, folate and multivitamin. We are asked to admit Review of Systems Constitutional: DENIES: Fatigue, Fever Endocrine: DENIES: Polydipsia, Polyuria Eyes: COMPLAINS OF: Blurred vision, DENIES: Diplopia, Vision loss, Photosensitivity Ears, nose, mouth, throat: COMPLAINS OF: Hearing loss, DENIES: Tinnitus Respiratory: DENIES: Apneas Cardiovascular: DENIES: Chest pain Gastrointestinal: DENIES: Abdominal pain, Diarrhea, Nausea, Vomiting Genitourinary: DENIES: Urinary frequency Musculoskeletal: DENIES: Joint pain, Stiffness Integumentary: DENIES: Abnormal pigmentation Hematologic/lymphatic: DENIES: Bruising Immunologic/allergic: DENIES: Eczema Neurologic: DENIES: Abnormal gait Psychiatric: COMPLAINS OF: Anxiety, Depression Past Family Social History Allergies: Coded Allergies: No Known Allergies (Unverified Adverse Reaction, Unknown, 07/15/17) Past Medical History EtOH abuse THC use Ongoing tobaccoism Past Surgical History Appendectomy Reported Medications None Active Ordered Medications Reviewed in EMR Family History Father is a quadriplegic posttrauma. Positive coronary disease Social History 6-12 beers daily. One pack per day tobacco. Positive THC use. Physical Exam Vital Signs Vital Signs Date Time Temp Pulse Resp B/P (MAP) Pulse Ox O2 Delivery O2 Flow Rate FiO2 07/27/17 03:44 80 16 119/78 (92) 97 Room Air 07/27/17 01:25 97.6 104 16 134/95 (108) 98 Physical Exam GENERAL: 36-year-old disheveled male currently resting in bed in no acute distress SKIN: Warm and dry. No rash HEAD: Atraumatic. Normocephalic. EYES: Pupils equal and round. No scleral icterus. No injection or drainage. ENT: No nasal bleeding or discharge. Mucous membranes pink and moist. NECK: Trachea midline. No JVD. CARDIOVASCULAR: Regular rate and rhythm. S1, S2. No S4. Without murmur RESPIRATORY: No accessory muscle use. Clear to auscultation. Breath sounds equal bilaterally. GASTROINTESTINAL: Abdomen soft, non-tender, nondistended. Hepatic and splenic margins not palpable. MUSCULOSKELETAL: Extremities without significant peripheral edema. No obvious deformities. NEUROLOGICAL: Awake and alert. No obvious cranial nerve deficits. Motor grossly within normal limits. Five out of 5 muscle strength in the arms and legs. Normal speech. Laboratory Laboratory Tests Test 07/27/17 01:40 07/27/17 02:03 07/27/17 04:10 White Blood Count 6.1 Red Blood Count 4.93 Hemoglobin 16.7 Hematocrit 47.2 Mean Corpuscular Volume 95.9 Mean Corpuscular Hemoglobin 34.0 Mean Corpuscular Hemoglobin Concent 35.4 Red Cell Distribution Width 13.5 Platelet Count 170 Mean Platelet Volume 7.3 Neutrophils (%) (Auto) 47.7 Lymphocytes (%) (Auto) 36.1 Monocytes (%) (Auto) 13.0 Eosinophils (%) (Auto) 2.6 Basophils (%) (Auto) 0.6 Neutrophils # (Auto) 2.9 Lymphocytes # (Auto) 2.2 Monocytes # (Auto) 0.8 Eosinophils # (Auto) 0.2 Basophils # (Auto) 0.0 CBC Comment DIFF FINAL Differential Comment Blood Urea Nitrogen 7 Creatinine 0.87 Random Glucose 92 Total Protein 7.5 Albumin 3.7 Calcium Level 7.7 Alkaline Phosphatase 70 Aspartate Amino Transf (AST/SGOT) 145 Alanine Aminotransferase (ALT/SGPT) 211 Total Bilirubin 0.3 Sodium Level 141 Potassium Level 3.8 Chloride Level 109 Carbon Dioxide Level 23.7 Anion Gap 8 Estimat Glomerular Filtration Rate 99 Serum Osmolality 392 Thyroid Stimulating Hormone 3rd Gen 0.720 Salicylates Level LESS THAN 1.7 Acetaminophen Level LESS THAN 2.0 Ethyl Alcohol Level 373 Urine Color LIGHT-YELLOW Urine Turbidity CLEAR Urine pH 5.5 Urine Specific [place] 1.006 Urine Protein NEG Urine Glucose (UA) NEG Urine Ketones NEG Urine Occult Blood NEG Urine Nitrite NEG Urine Bilirubin NEG Urine Urobilinogen LESS THAN 2.0 Urine Leukocyte Esterase NEG Urine RBC LESS THAN 1 Urine WBC LESS THAN 1 Microscopic Urinalysis Comment CULT NOT INDICATED Urine Opiates Screen NEG Urine Barbiturates Screen NEG Urine Amphetamines Screen NEG Urine Benzodiazepines Screen NEG Urine Cocaine Screen NEG Urine Cannabinoids Screen POS Result Diagram: 07/27/1713907/27/17139 Septic Shock Reassessment Septic shock perfusion: reassessment completed Caprini VTE Risk Assessment Caprini VTE Risk Assessment: Mod/High Risk (score >= 2) VTE Pharm Contraindication: Active bleeding Caprini Risk Assessment Model Point Value = 1 Point Value = 2 Point Value = 3 Point Value = 5 Age 41-60 Minor surgery BMI > 25 kg/m2 Swollen legs Varicose veins or History of unexplained or recurrent spontaneous Oral contraceptives or hormone replacement Sepsis (< 1 month) Serious lung disease, including pneumonia (< 1 month) Abnormal pulmonary function Acute myocardial infarction Congestive heart failure (< 1 month) History of inflammatory bowel disease Medical patient at bed rest Age 61-74 Arthroscopic surgery Major open surgery (> 45 min) Laparoscopic surgery (> 45 min) Malignancy Confined to bed (> 72 hours) Immobilizing plaster cast Central venous access Age >= 75 History of VTE Family history of VTE Factor V Leiden Prothrombin [id number] Lupus anticoagulant Anticardiolipin antibodies Elevated serum homocysteine Heparin-induced thrombocytopenia Other congenital or acquired thrombophilia Stroke (< 1 month) Elective arthroplasty Hip, pelvis, or leg fracture Acute spinal cord injury (< 1 month) Prophylaxis Regimen Total Risk Factor Score Risk Level Prophylaxis Regimen 0-1 Low Early ambulation 2 Moderate Order ONE of the following: *Sequential Compression Device (SCD) *Heparin 5000 units SQ BID 3-4 Higher Order ONE of the following medications: *Heparin 5000 units SQ TID *Enoxaparin/Lovenox 40 mg SQ daily (WT < 150 kg, CrCl > 30 mL/min) *Enoxaparin/Lovenox 30 mg SQ daily (WT < 150 kg, CrCl > 10-29 mL/min) *Enoxaparin/Lovenox 30 mg SQ BID (WT < 150 kg, CrCl > 30 mL/min) AND/OR *Sequential Compression Device (SCD) 5 or more Highest Order ONE of the following medications: *Heparin 5000 units SQ TID (Preferred with Epidurals) *Enoxaparin/Lovenox 40 mg SQ daily (WT < 150 kg, CrCl > 30 mL/min) *Enoxaparin/Lovenox 30 mg SQ daily (WT < 150 kg, CrCl > 10-29 mL/min) *Enoxaparin/Lovenox 30 mg SQ BID (WT < 150 kg, CrCl > 30 mL/min) AND *Sequential Compression Device (SCD) Assessment and Plan Assessment and Plan Neuro/Psych: Intentional isopropyl alcohol ingestion Alcohol abuse THC use Suicidal ideation with depression Monitor serum/urine osmolarity Poison control recommends every 6 hours labs see orders Multivitamin, thiamine and folate daily with vitamin bag for 3 days Monitor for DTs Psychiatry consulted for Cavanaugh act when appropriate CV: Patient is currently on normal saline at 84 cc an hour Received 3 L normal saline bolus Currently not requiring vasopressors and/or antihypertensives Monitor BP closely with isopropyl alcohol ingestion Resp: Ongoing tobaccoism Nasal cannula to maintain saturations greater or equal 92% Incentive spirometry while awake Tobacco cessation will be encouraged GI: Elevated transaminases Currently n.p.o. Pantoprazole for GI prophylaxis Docusate sodium/senna twice daily for bowel regimen Check hepatitis panel/liver ultrasound : Dick catheter if indicated Endo: Sliding scale insulin to maintain euglycemia indicated nOVULIN r low regimen before meals at bedtime TSH 0.72 Renal: Creatinine currently within normal limits Monitor urine output Accurate I's and O's Heme: CBC within normal with exception of elevated monocytes ID: Monitor for infection MSK: PT evaluate and treat FEN: Replace electrolytes as clinically indicated Access -Utilize peripheral IV. Central LINE if indicated Prophylaxis -GI -pantoprazole -DVT -SCD/heparin subcu Level 2 admission Code Status Full code Discussed Condition With ED PA. Patient. Care plan discussed and all questions answered Kamlesh Simon MD Jul 27, 2017 04:29
[2017-07-27] MEDS ORDERED: SODIUM CHLORIDE 0.9% FLUSH 10 ML FLUSH IV FLUSH PRN (04:30)
[2017-07-27] MEDS ORDERED: CHLORHEXIDINE GLUCONATE 2 % 1 PACK (2 CLOTHS) TOP PRN (04:30)
[2017-07-27] MEDS ORDERED: SENNOSIDES 8.6 MG TAB PO PRN (04:30)
[2017-07-27] MEDS ORDERED: MISCELLANEOUS NURSING INFORMATION XX SCH (04:30)
[2017-07-27] MEDS ORDERED: MAGNESIUM HYDROXIDE SUSP 30 ML CUP PO PRN (04:30)
[2017-07-27] MEDS ORDERED: BISACODYL 10 MG SUPP RECTAL PRN (04:30)
[2017-07-27] MEDS ORDERED: RESP: ALBUTEROL 2.5 MG/3 ML NEB (PRN) INH (04:30)
[2017-07-27] MEDS ORDERED: LACTULOSE SYRUP 20 GM/30 ML CUP PO PRN (04:30)
[2017-07-27] MEDS ORDERED: ONDANSETRON HCL 4 MG/2 ML VIAL IV PUSH PRN (04:30)
[2017-07-27 04:35] LABS: PROTHROMBIN TIME - PATIENT 10.3 SEC (9.8-11.6)
[2017-07-27] MEDS ORDERED: GLUCAGON 1 MG/ML VIAL OTHER PRN (05:45)
[2017-07-27] MEDS ORDERED: DEXTROSE 50% IN WATER 50 ML VIAL(D50) IV PUSH PRN (05:45)
[2017-07-27] MEDS: HEPARIN SODIUM - SQ 10,000 UNITS/ML VIAL SQ SCH ×2 (06:12→17:45)
[2017-07-27] MEDS ORDERED: LORazepam 1 MG TAB PO PRN (06:15)
[2017-07-27] MEDS ORDERED: LORazepam 2 MG TAB PO PRN (06:15)
[2017-07-27] MEDS ORDERED: FLUMAZENIL 0.5 MG/5 ML VIAL IV PUSH PRN (06:15)
[2017-07-27] MEDS ORDERED: LORazepam 2 MG/ML VIAL IV PUSH PRN ×3 (06:15)
--- NOTE | 2017-07-27 07:23 | RADRPT ---
EXAM DATE/TIME: 07/27/2017 06:58 [place] COMPARISON: No previous studies available for comparison. INDICATIONS : Ingestion of three bottles of isopropyl alcohol; enlarged liver. MEDICAL HISTORY : ETOH. THC use. SURGICAL HISTORY : Appendectomy. ENCOUNTER: Initial ACUITY: 1 day PAIN SCORE: 2/10 LOCATION: Bilateral upper quadrant MEASUREMENTS: LIVER: 16.6 cm length COMMON DUCT: 5 mm RIGHT KIDNEY: 10.7 x 6.1 x 5.9 cm SPLEEN: 10.0 cm length FINDINGS: LIVER: Normal echotexture without focal lesion or ductal dilatation. COMMON DUCT: No intraluminal mass or stone visualized. GALLBLADDER: Contains no stones, demonstrates no wall thickening or pericholecystic fluid. PANCREAS: Largely obscured by overlying bowel gas. RIGHT KIDNEY: No hydronephrosis, stone or mass. SPLEEN: No focal lesion. CONCLUSION: 1. Borderline hepatomegaly. Liver is otherwise unremarkable by ultrasound. 2. Limited evaluation of the pancreas do to overlying bowel gas. 3. Otherwise, unremarkable shunt exam. Silvestre Mobley MD on July 27, 2017 at 7:20 Board Certified Radiologist. This report was verified electronically.
[2017-07-27] MEDS: INSULIN NovoLIN REGULAR SUPPLEMENTAL SCALE SQ SCH ×4 (08:00→21:00)
[2017-07-27] MEDS: FAMOTIDINE 20 MG/2 ML VIAL IV PUSH SCH ×2 (09:00→20:36)
[2017-07-27] MEDS: MULTIVITAMIN INJ 10 ML, THIAMINE INJ 100 MG, FOLIC ACID INJ 1 MG in SODIUM CHLORID 0.9%... IV SCH (09:00)
[2017-07-27] MEDS: SODIUM CHLORIDE 0.9% FLUSH 10 ML FLUSH IV FLUSH SCH ×2 (09:00→20:36)
[2017-07-27] MEDS: DOCUSATE SODIUM 50 MG/SENNA 8.6 MG TAB PO SCH ×2 (09:00→20:36)
[2017-07-27] MEDS: ARTIFICIAL TEARS OPTH SOLN 15 ML BTL EACH EYE SCH ×3 (09:00→17:29)
[2017-07-27 10:42] LABS: BICARBONATE 22.7 MEQ/L (21.0-32.0); CREATININE 0.67 MG/DL (0.60-1.30)
[2017-07-27 10:55] LABS: TOTAL PROTEIN 6.3 GM/DL (6.4-8.2)
[2017-07-27 11:05] LABS: CALCIUM-PROTEIN CORRECTED 7.4 MG/DL (8.5-10.1)
[2017-07-27] MEDS: LORazepam 2 MG/ML VIAL IV PUSH PRN ×4 (11:43→20:36)
[2017-07-27 14:39] LABS: HEPATITIS B CORE AB IGM NEGATIVE (NEGATIVE)
[2017-07-27 14:58] LABS: HEPATITIS A AB IGM NEGATIVE (NEGATIVE)
[2017-07-27 16:52] LABS: BICARBONATE 22.2 MEQ/L (21.0-32.0); CALCIUM 7.2 MG/DL (8.5-10.1); CREATININE 0.64 MG/DL (0.60-1.30)
[2017-07-27 17:18] LABS: TOTAL PROTEIN 6.8 GM/DL (6.4-8.2)
[2017-07-27 17:19] LABS: CALCIUM-PROTEIN CORRECTED 7.4 MG/DL (8.5-10.1)
[2017-07-27] MEDS: RESP: ALBUTEROL 2.5 MG/IPRATROPIUM 0.5 MG NEB (SCH) INH ×2 (17:29→22:03)
[2017-07-27 23:26] LABS: BICARBONATE 26.5 MEQ/L (21.0-32.0); CALCIUM 8.3 MG/DL (8.5-10.1); CREATININE 0.75 MG/DL (0.60-1.30)
[2017-07-28] VITALS: BP 144/79; PULSE 72; RESP 17; TEMP 98.1; O2SAT 98
[2017-07-28] MEDS: RESP: ALBUTEROL 2.5 MG/IPRATROPIUM 0.5 MG NEB (SCH) INH ×2 (03:58→08:11)
[2017-07-28 04:00] VITALS: BP 157/84; PULSE 62; RESP 15; TEMP 98.6; O2SAT 96
[2017-07-28] MEDS ORDERED: CHLORHEXIDINE GLUCONATE 2 % 1 PACK (2 CLOTHS) TOP SCH (04:00)
[2017-07-28] MEDS: SODIUM CHLOR 0.9% 1000 ML INJ 1,000 ML IV SCH (04:03)
[2017-07-28 05:29] LABS: AUTOMATED NEUTROPHIL # 3.8 TH/MM3 (1.8-7.7); BASOPHIL % 0.5 % (0.0-2.0); EOSINOPHIL # 0.1 TH/MM3 (0-0.4); EOSINOPHIL % 1.8 % (0.0-4.0); HEMATOCRIT 44.6 % (39.0-51.0); HEMOGLOBIN 15.5 GM/DL (13.0-17.0); LYMPH % 22.5 % (9.0-44.0); LYMPHOCYTE # 1.3 TH/MM3 (1.0-4.8); MEAN CELL VOLUME 96.5 FL (80.0-100.0); MEAN CORPUSCULAR HEMOGLOBIN 33.5 PG (27.0-34.0); MEAN CORPUSCULAR HGB CONC 34.7 % (32.0-36.0); MEAN PLATELET VOLUME 7.5 FL (7.0-11.0); MONO % 11.1 % (0.0-8.0); MONOCYTE # 0.7 TH/MM3 (0-0.9); NEUT % 64.1 % (16.0-70.0); PLATELET COUNT 162 TH/MM3 (150-450); RED BLOOD COUNT 4.62 MIL/MM3 (4.50-5.90); RED CELL DISTRIBUTION WIDTH 13.2 % (11.6-17.2); WHITE BLOOD COUNT 5.9 TH/MM3 (4.0-11.0)
[2017-07-28 05:38] LABS: PROTHROMBIN TIME - PATIENT 10.6 SEC (9.8-11.6)
[2017-07-28 06:06] LABS: ALBUMIN 3.3 GM/DL (3.4-5.0); AST (GOT) 66 U/L (15-37); BICARBONATE 25.5 MEQ/L (21.0-32.0); BLOOD UREA NITROGEN 9 MG/DL (7-18); CALCIUM 8.2 MG/DL (8.5-10.1); CHLORIDE 103 MEQ/L (98-107); CREATININE 0.67 MG/DL (0.60-1.30); GLOMERULAR FILTRATION RATE 133 ML/MIN (>89); GLUCOSE,RANDOM 75 MG/DL (74-106); MAGNESIUM 1.9 MG/DL (1.5-2.5); SODIUM (NA) 137 MEQ/L (136-145)
[2017-07-28 06:10] LABS: ALKALINE PHOSPHATASE 66 U/L (45-117); ALT (GPT) 148 U/L (12-78); PHOSPHORUS 3.1 MG/DL (2.5-4.9); TOTAL PROTEIN 6.5 GM/DL (6.4-8.2)
[2017-07-28] MEDS: HEPARIN SODIUM - SQ 10,000 UNITS/ML VIAL SQ SCH (06:42)
[2017-07-28] MEDS: INSULIN NovoLIN REGULAR SUPPLEMENTAL SCALE SQ SCH ×2 (08:00→12:00)
[2017-07-28 08:13] VITALS: O2SAT 100
--- NOTE | 2017-07-28 08:33 | EKG ---
Date Performed: 07/27/2017 Time Performed: 04:37:29 PTAGE: 36 years EKG: Sinus rhythm LOW QRS VOLTAGE THROUGHOUT BORDERLINE ECG Since PREVIOUS TRACING , no significant change noted PREVIOUS TRACING DOCTOR: Myron Norris Interpretating Date/Time 07/28/2017 08:31:40
[2017-07-28] MEDS: SODIUM CHLORIDE 0.9% FLUSH 10 ML FLUSH IV FLUSH SCH (09:00)
--- NOTE | 2017-07-28 10:06 | HHI.CCPN ---
Subjective Remarks/Hospital Course Hospital Course: This is a 36-year-old male. Date of admission 07/28/2007. Past medical history includes alcohol abuse. Patient drinks between 6 and 12 beers daily. Patient lives with his father who is a quadriplegic who has lots of isopropyl alcohol. He decided to drink 3 bottles of 70% isopropyl alcohol similar to an episode 07/16/2017. He did this because he wanted to "end it". Patient's alcohol level is 373. Patient received 2 L normal saline in the ED. Serum osmolarity was 392. Transaminases were elevated. Patient received thiamine, folate and multivitamin. We are asked to admit Subjective: 07/28: medically cleared by poison control. doing well. denies complaints. still needs to be evaluated by psych, however recently similar presentation with intentional overdose on 07/21, so likely needs inpatient psychiatric services. Objective Vital Signs Date Time Temp Pulse Resp B/P (MAP) Pulse Ox O2 Delivery O2 Flow Rate FiO2 07/28/17 08:13 100 21 07/28/17 07:00 Room Air 07/28/17 04:00 98.6 62 15 157/84 (108) Intake and Output 07/28/17 07/28/17 07/29/17 08:00 16:00 00:00 Intake Total 1240 ml Output Total 1850 ml Balance -610 ml Result Diagram: 07/28/17 04307/28/17 043 Objective Remarks GENERAL: 36-year-old disheveled male currently resting in bed in no acute distress SKIN: Warm and dry. No rash HEAD: Atraumatic. Normocephalic. EYES: Pupils equal and round. No scleral icterus. No injection or drainage. ENT: No nasal bleeding or discharge. Mucous membranes pink and moist. NECK: Trachea midline. No JVD. CARDIOVASCULAR: Regular rate and rhythm. RESPIRATORY: No accessory muscle use. equal chest rise. GASTROINTESTINAL: Abdomen soft, non-tender, nondistended. MUSCULOSKELETAL: Extremities without significant peripheral edema. No obvious deformities. NEUROLOGICAL: Awake and alert. no focal deficits. A/P Assessment and Plan Assessment: 36yM s/p repeat intentional overdose with isopropyl alcohol. medically cleared. psych consult pending. ready for transfer to psych. Neuro/Psych: Intentional isopropyl alcohol ingestion Alcohol abuse THC use Suicidal ideation with depression Psychiatry consulted CV: saline lock ivf. Resp: Ongoing tobaccoism Nasal cannula to maintain saturations greater or equal 92% Incentive spirometry while awake Tobacco cessation will be encouraged GI: Elevated transaminases regular diet as tolerated. Pantoprazole for GI prophylaxis Docusate sodium/senna twice daily for bowel regimen Check hepatitis panel/liver ultrasound : voiding Endo: Sliding scale insulin to maintain euglycemia indicated nOVULIN r low regimen before meals at bedtime TSH 0.72 Renal: Creatinine currently within normal limits Monitor urine output Accurate I's and O's Heme: CBC within normal with exception of elevated monocytes ID: Monitor for infection MSK: PT evaluate and treat FEN: Replace electrolytes as clinically indicated Access -Utilize peripheral IV. Central LINE if indicated Prophylaxis -GI -pantoprazole -DVT -SCD/heparin subcu Dispo: stable for discharge to psych services. Stuart Benavides MD Jul 28, 2017 10:05
[2017-07-28] MEDS: MULTIVITAMIN INJ 10 ML, THIAMINE INJ 100 MG, FOLIC ACID INJ 1 MG in SODIUM CHLORID 0.9%... IV SCH (10:10)
[2017-07-28] MEDS: DOCUSATE SODIUM 50 MG/SENNA 8.6 MG TAB PO SCH (10:11)
--- NOTE | 2017-07-28 11:28 | HHI.DS ---
Discharge Summary Admission Date Jul 27, 2017 at 04:30 Discharge Date: Jul 28, 2017 Admitting Diagnosis Isopropyl alcohol ingestion, intentional overdose (1) Alcohol abuse ICD Code: F10.10 - Alcohol abuse, uncomplicated Diagnosis: Principal (2) Tetrahydrocannabinol (THC) use disorder, mild, abuse ICD Code: F12.10 - Cannabis abuse, uncomplicated Diagnosis: Principal (3) Isopropyl alcohol poisoning ICD Code: T51.2X1A - Toxic effect of 2-Propanol, accidental (unintentional), initial encounter Diagnosis: Principal (4) H/O isopropyl alcohol poisoning ICD Code: Z91.89 - Other specified personal risk factors, not elsewhere classified Diagnosis: Principal (5) Elevated levels of transaminase & lactic acid dehydrogenase ICD Code: R74.0 - Nonspecific elevation of levels of transaminase and lactic acid dehydrogenase [LDH] Diagnosis: Principal (6) Alcohol abuse with alcohol-induced mood disorder ICD Code: F10.14 - Alcohol abuse with alcohol-induced mood disorder Diagnosis: Principal Brief History This is a 36-year-old male. Date of admission 07/28/2007. Past medical history includes alcohol abuse. Patient drinks between 6 and 12 beers daily. Patient lives with his father who is a quadriplegic who has lots of isopropyl alcohol. He decided to drink 3 bottles of 70% isopropyl alcohol similar to an episode 07/16/2017. He did this because he wanted to "end it". Patient's alcohol level is 373. Patient received 2 L normal saline in the ED. Serum osmolarity was 392. Transaminases were elevated. Patient received thiamine, folate and multivitamin. We are asked to admit CBC/BMP: 07/28/17 0431 07/28/17 0431 Significant Findings Laboratory Tests Test 07/27/17 01:40 07/27/17 02:03 07/27/17 04:10 07/27/17 08:00 Monocytes (%) (Auto) 13.0 % (0.0-8.0) Calcium Level 7.7 MG/DL (8.5-10.1) Aspartate Amino Transf (AST/SGOT) 145 U/L (15-37) Alanine Aminotransferase (ALT/SGPT) 211 U/L (12-78) Chloride Level 109 MEQ/L (98-107) Serum Osmolality 392 MOSM/KG (275-295) Salicylates Level LESS THAN 1.7 MG/DL Acetaminophen Level LESS THAN 2.0 MCG/ML Ethyl Alcohol Level 373 MG/DL (0-5) Urine Cannabinoids Screen POS (NEG) Troponin I LESS THAN 0.02 NG/ML Test 07/27/17 10:00 07/27/17 15:38 07/27/17 21:44 07/28/17 04:31 Blood Urea Nitrogen 4 MG/DL (7-18) 5 MG/DL (7-18) Total Protein 6.3 GM/DL (6.4-8.2) Calcium Level 7.0 MG/DL (8.5-10.1) 7.2 MG/DL (8.5-10.1) 8.3 MG/DL (8.5-10.1) 8.2 MG/DL (8.5-10.1) Chloride Level 114 MEQ/L (98-107) 111 MEQ/L (98-107) Serum Osmolality 351 MOSM/KG (275-295) 321 MOSM/KG (275-295) Protein Corrected Calcium 7.4 MG/DL (8.5-10.1) 7.4 MG/DL (8.5-10.1) Troponin I LESS THAN 0.02 NG/ML Ethyl Alcohol Level 217 MG/DL (0-5) Random Glucose 61 MG/DL (74-106) 122 MG/DL (74-106) B-Hydroxybutyrate 0.83 MMOL/L (0.00-0.39) Monocytes (%) (Auto) 11.1 % (0.0-8.0) Albumin 3.3 GM/DL (3.4-5.0) Aspartate Amino Transf (AST/SGOT) 66 U/L (15-37) Alanine Aminotransferase (ALT/SGPT) 148 U/L (12-78) Hospital Course Hospital Course: This is a 36-year-old male. Date of admission 07/28/2007. Past medical history includes alcohol abuse. Patient drinks between 6 and 12 beers daily. Patient lives with his father who is a quadriplegic who has lots of isopropyl alcohol. He decided to drink 3 bottles of 70% isopropyl alcohol similar to an episode 07/16/2017. He did this because he wanted to "end it". Patient's alcohol level is 373. Patient received 2 L normal saline in the ED. Serum osmolarity was 392. Transaminases were elevated. Patient received thiamine, folate and multivitamin. We are asked to admit 07/28: medically cleared by poison control. doing well. denies complaints. still needs to be evaluated by psych, however recently similar presentation with intentional overdose on 07/21, so needs inpatient psychiatric services. seen by psych and accepted to psych facility. Pt Condition on Discharge: Stable Discharge Disposition: Disc to Psych Care Fac Discharge Instructions DIET: Follow Instructions for: As Tolerated, No Restrictions Activities you can perform: Regular-No Restrictions Stuart Benavides MD Jul 28, 2017 11:28
--- NOTE | 2017-07-28 15:14 | PD.PSY.CON ---
Provisional Diagnosis Admission Date Jul 27, 2017 at 04:30 [place] I. Unspecified psychosis, alcohol induced mood disorder, alcohol use disorder, r/o major depressive disorder, r/o schizoaffective disorder, schizophrenia [place] II. Deferred History of Present Illness Service Psychiatry Consult Requested By Medical team Reason for Consult Suicidal attempt Primary Care Physician Unknown HPI The patient is a 36-year-old man, domiciled alone in [facility], single, unemployed, with psychiatric history of depression, about 3 previous psychiatric hospitalizations related with alcohol use disorder, self cutting behavior, patient was seen by me in July 16 with a very similar presentation , and he was psychiatrically cleared, he says that lives with his father who is a quadriplegic who has lots of isopropyl alcohol according to the patient . The patient decided to drink 3 bottles of 70% isopropyl alcohol in order to kill himself. Consulted to psychiatry to address potential suicidal attempt. On psychiatric evaluation today the patient is irritable, superficially cooperative. Patient recognized me immediately from our previous encounter. Patient says that he did not overdose, he just lied to the police to make it to the hospital. He says that the reason he decided to lay to the police to come to the hospital is because "by saying that I try to commit suicide I would commit myself to the hospital and at would be safe", when I asked came safe of what? The patient says that he has a brother who came from [place] and has been looking for him to kill him. He says that his brother is accompanied "with all other for a bad guys" and they're all looking for him to kill him. At this moment he denies suicidal and homicidal ideation, he denies visual and auditory hallucinations. The patient seems to be internally preoccupied and paranoid. When I started to inquire more about this history about his brother the patient became verbally hostile, agitated, and is started to request to be discharged immediately. Past Family Social History Coded Allergies: No Known Allergies (Unverified Adverse Reaction, Unknown, 07/15/17) No Active Prescriptions or Reported Meds Current Medications Medications (Trade) Dose Ordered Sig/Sherrill Route Start Time Stop Time Status Last Admin (NS Flush) 2 ml UNSCH PRN IV FLUSH 07/27/17 04:30 (NS Flush) 2 ml BID IV FLUSH 07/27/17 09:00 3/6/18 20:36 (Zofran Inj) 4 mg Q6H PRN IV PUSH 07/27/17 04:30 07/27/17 20:35 (Albuterol Neb) 2.5 mg Q2HR NEB PRN INH 07/27/17 04:30 (Heparin Inj) 5,000 units Q12H SQ 07/27/17 06:00 07/28/17 06:42 Miscellaneous Information 1 Q361D XX 07/27/17 04:30 (Chlorhexidine 2% Cloth) 3 pack Taper DAILY@04 TOP 07/28/17 04:00 07/24/18 03:59 (Chlorhexidine 2% Cloth) 3 pack UNSCH PRN TOP 07/27/17 04:30 (Malathi-Colace) 1 tab BID PO 07/27/17 09:00 07/28/17 10:11 (Milk Of Magnesia Liq) 30 ml Q12H PRN PO 07/27/17 04:30 (Senokot) 17.2 mg Q12H PRN PO 07/27/17 04:30 (Dulcolax Supp) 10 mg DAILY PRN RECTAL 07/27/17 04:30 (Lactulose Liq) 30 ml DAILY PRN PO 07/27/17 04:30 Multivitamins 10 ml/Thiamine HCl 100 mg/Folic Acid 1 mg/Sodium Chloride 511.2 ml @ 125 mls/hr DAILY IV 07/27/17 09:00 07/28/17 10:10 (Glucagon Inj) 1 mg UNSCH PRN OTHER 07/27/17 05:45 (NovoLIN R SUPPLEMENTAL SCALE) 1 ACHS SLIDING SCALE SQ 07/27/17 08:00 (Romazicon Inj) 0.2 mg Q1M PRN IV PUSH 07/27/17 06:15 (Ativan) 1 mg Q4H PRN PO 07/27/17 06:15 (Ativan Inj) 1 mg Q4H PRN IV PUSH 07/27/17 06:15 (Ativan) 2 mg Q2H PRN PO 07/27/17 06:15 (Ativan Inj) 2 mg Q2H PRN IV PUSH 07/27/17 06:15 (Ativan Inj) 2 mg Q1H PRN IV PUSH 07/27/17 06:15 07/27/17 20:36 (Ativan Inj) 2 mg Q15M PRN IV PUSH 07/27/17 06:15 Physical Exam Vital Signs Vital Signs Date Time Temp Pulse Resp B/P (MAP) Pulse Ox O2 Delivery O2 Flow Rate FiO2 07/28/17 08:13 100 21 07/28/17 07:00 Room Air 07/28/17 04:00 98.6 62 15 157/84 (108) I/O 07/28/17 07/28/17 07/29/17 08:00 16:00 00:00 Intake Total 1240 ml 800 ml Output Total 1850 ml Balance -610 ml 800 ml Lab Results Test 07/27/17 15:38 07/27/17 21:44 07/28/17 04:31 Blood Urea Nitrogen 5 MG/DL 8 MG/DL 9 MG/DL Creatinine 0.64 MG/DL 0.75 MG/DL 0.67 MG/DL Random Glucose 61 MG/DL 122 MG/DL 75 MG/DL Total Protein 6.8 GM/DL 6.5 GM/DL Calcium Level 7.2 MG/DL 8.3 MG/DL 8.2 MG/DL Sodium Level 143 MEQ/L 137 MEQ/L 137 MEQ/L Potassium Level 3.8 MEQ/L 4.0 MEQ/L 3.8 MEQ/L Chloride Level 111 MEQ/L 105 MEQ/L 103 MEQ/L Carbon Dioxide Level 22.2 MEQ/L 26.5 MEQ/L 25.5 MEQ/L Anion Gap 10 MEQ/L 6 MEQ/L 9 MEQ/L Estimat Glomerular Filtration Rate 141 ML/MIN 117 ML/MIN 133 ML/MIN Serum Osmolality 321 MOSM/KG 291 MOSM/KG Protein Corrected Calcium 7.4 MG/DL B-Hydroxybutyrate 0.83 MMOL/L 0.08 MMOL/L Ethyl Alcohol Level LESS THAN 3 MG/DL White Blood Count 5.9 TH/MM3 Red Blood Count 4.62 MIL/MM3 Hemoglobin 15.5 GM/DL Hematocrit 44.6 % Mean Corpuscular Volume 96.5 FL Mean Corpuscular Hemoglobin 33.5 PG Mean Corpuscular Hemoglobin Concent 34.7 % Red Cell Distribution Width 13.2 % Platelet Count 162 TH/MM3 Mean Platelet Volume 7.5 FL Neutrophils (%) (Auto) 64.1 % Lymphocytes (%) (Auto) 22.5 % Monocytes (%) (Auto) 11.1 % Eosinophils (%) (Auto) 1.8 % Basophils (%) (Auto) 0.5 % Neutrophils # (Auto) 3.8 TH/MM3 Lymphocytes # (Auto) 1.3 TH/MM3 Monocytes # (Auto) 0.7 TH/MM3 Eosinophils # (Auto) 0.1 TH/MM3 Basophils # (Auto) 0.0 TH/MM3 CBC Comment DIFF FINAL Differential Comment Prothrombin Time 10.6 SEC Prothromb Time International Ratio 1.0 RATIO Activated Partial Thromboplast Time 25.2 SEC Albumin 3.3 GM/DL Phosphorus Level 3.1 MG/DL Magnesium Level 1.9 MG/DL Alkaline Phosphatase 66 U/L Aspartate Amino Transf (AST/SGOT) 66 U/L Alanine Aminotransferase (ALT/SGPT) 148 U/L Total Bilirubin 1.0 MG/DL Lactic Acid Level 0.8 mmol/L Mental Status Examination Appearance: Appropriate Consciousness: Alert Orientation: x4 Motor Activity: Abnormal gait Speech: Rapid Fund of Knowledge: Adequate Attention and Concentration: Adequate Memory: Unremarkable Mood: Angry Affect: Irritable Thought Process & Associations: Intact Thought Content: Bizarre thinking, Delusional Hallucination Type: None Delusion Type: Bizarre, Paranoid Suicidal Ideation: Yes Suicidal Plan: No Suicidal Intention: No Homicidal Ideation: No Homicidal Plan: No Homicidal Intention: No Insight: Poor Judgment: Poor Assessment & Plan Problem List: (1) Unspecified psychosis ICD Codes: F29 - Unspecified psychosis not due to a substance or known physiological condition Assessment & Plan: On psychiatric evaluation today the patient denies depressive symptoms, he denies suicidal and homicidal ideation, he denies visual and auditory hallucinations. Patient is states that he has been endorsing suicidal ideation to the police to be brought to the hospital "to feel safe". However, patient seems to be oddly related, internally preoccupied and endorses paranoia of having a brother and "bad guys" trying to kill him and that is the reason when he saw the police yesterday he told him he was suicidal in other to be brought to the hospital and hide "from those people". This is the second time in a period of 2 weeks that the patient is brought to the hospital with a very similar presentation. I initially lifted the [place] act recommending that the patient was referred to [facility] for detox/rehabilitation. Today my concern is that in top of his severe alcoholism the patient could be also psychotic. Obviously, his psychotic could be secondary to alcohol intoxication, and also we have to rule out carefully malicious simulation, but I 'm going to go ahead and admitted the patient for further longitudinal observation of mood, thought processes and behavior. Transfer the patient to the psychiatric unit once medically clear. Continue CIWA protocol. Haldol 5 mg IM every 8 hours when necessary aggressive behavior and agitation. Assessment & Plan Estimated LOS: days Anival Rice MD Jul 28, 2017 15:14
== END 2017-07-28 15:02 | DRG 918 ==
LOC: NEPD 01:15 → NEDA 04:30 → N03A 07:43
PROVIDERS: ADMIT Internal Medicine Critical Care Medicine; ATTEND Internal Medicine Critical Care Medicine
DX: T51.2X2A Toxic effect of 2-Propanol, intentional self-harm, initial encounter (principal); F22 Delusional disorders; F10.24 Alcohol dependence with alcohol-induced mood disorder; R27.0 Ataxia, unspecified; H91.91 Unspecified hearing loss, right ear; R47.81 Slurred speech; R74.0 Nonspecific elevation of levels of transaminase and lactic acid dehydrogenase [LDH]; F12.10 Cannabis abuse, uncomplicated; F17.200 Nicotine dependence, unspecified, uncomplicated; Y90.8 Blood alcohol level of 240 mg/100 ml or more; Z91.5 Personal history of self-harm
CPT/HCPCS: 76705; 80048; 80053; 80074; 80307; 81001; 82010; 82948; 83605; 83735; 83930; 83935; 84100; 84155; 84443; 84484; 85025; 85610; 85730; 87641; 93005; 94640; 94664; 96360; 96361; J1644; J2060; J2405; J3411; J7030; J7040

== ENCOUNTER 2017-07-28 14:21 | Inpatient (IN) | payer SELFPAY ==
[~2017-07-28] VITALS: Ht 175.3 cm; Wt 79.3 kg
[2017-07-28 15:47] VITALS: BP 139/93; PULSE 78; RESP 18; TEMP 98; O2SAT 99
[2017-07-28] MEDS ORDERED: ALUMINUM/MAGNESIUM/SIMETH 30 ML CUP PO PRN (16:00)
[2017-07-28] MEDS: NICOTINE 21 MG/24 HR PATCH T-DERMAL SCH (16:00)
[2017-07-28] MEDS ORDERED: ACETAMINOPHEN 325 MG TAB PO PRN (16:00)
[2017-07-28] MEDS ORDERED: MAGNESIUM HYDROXIDE SUSP 30 ML CUP PO PRN (16:00)
[2017-07-28] MEDS ORDERED: LORazepam 0.5 MG TAB PO PRN (16:00)
[2017-07-28] MEDS ORDERED: LORazepam 2 MG/ML VIAL IV PUSH PRN ×4 (16:00)
[2017-07-28] MEDS ORDERED: LORazepam 2 MG/ML VIAL IM PRN ×2 (16:00)
[2017-07-28] MEDS ORDERED: LORazepam 1 MG TAB PO PRN ×2 (16:00)
[2017-07-28] MEDS ORDERED: FLUMAZENIL 0.5 MG/5 ML VIAL IV PUSH PRN (16:00)
[2017-07-28] MEDS ORDERED: LORazepam 2 MG TAB PO PRN (16:00)
[2017-07-28] MEDS: REMOVE OLD NICODERM (NICOTINE) PATCH T-DERMAL SCH (21:00)
[2017-07-29 06:13] VITALS: BP 155/96; PULSE 75; RESP 18; TEMP 97.5; O2SAT 99
[2017-07-29] MEDS: NICOTINE 21 MG/24 HR PATCH T-DERMAL SCH (09:00)
[2017-07-29 09:13] LABS: BLOOD UREA NITROGEN 7 MG/DL (7-18); CALCIUM 8.2 MG/DL (8.5-10.1); CHLORIDE 103 MEQ/L (98-107); CREATININE 0.84 MG/DL (0.60-1.30); GLOMERULAR FILTRATION RATE 103 ML/MIN (>89); GLUCOSE,RANDOM 91 MG/DL (74-106); SODIUM (NA) 139 MEQ/L (136-145)
[2017-07-29 09:14] LABS: CHOLESTEROL 172 MG/DL (120-200)
[2017-07-29 09:17] LABS: CHOLESTEROL/ HDL RATIO 2.56 RATIO; HDL CHOLESTEROL 67.1 MG/DL (40.0-60.0); LDL CHOLESTEROL 83 MG/DL (0-99); TRIGLYCERIDES 110 MG/DL (42-150)
--- NOTE | 2017-07-29 11:34 | HHI.HP ---
Provisional Diagnosis Admission Date Jul 28, 2017 at 15:39 [place] I. 1. Adjustment disorder with mixed disturbance of emotions and conduct Rule out underlying depressive illness, psychotic illness, personality disorder, drug induced mood or psychotic disorder, malingering 2. Alcohol abuse [place] II. Deferred Certification of Person's Competence To Provide Express and Informed Consent I have personally examined Cornelio Pina , a person being served at [facility] on, Jul 29, 2017 11:34. Express and informed consent means consent voluntarily given in writing, by a competent person, after sufficient explanation and disclosure of the subject matter involved to enable the person to make a knowing and willful decision without any element of force, fraud, deceit, duress, or other form of constraint or coercion. This person is 18 years of age or older, is not now known to be incompetent to consent to treatment with a guardian advocate, and does not have a health care surrogate or proxy currently making medical treatment decisions. I have found this person to be one of the following: [] Competent to provide express and informed consent, as defined above, for voluntary admission to this facility and is competent to provide express and informed consent for treatment. He/she has the consistent capacity to make well reasoned, willful, and knowing decisions concerning his or her medical or mental health treatment. The person fully and consistently understands the purpose of the admission for examination/placement and is fully capable of personally exercising all rights [place] Incompetent to provide express and informed consent to voluntary admission, and this is incompetent to provide express and informed consent to treatment. The person must be transferred to involuntary status and a petition for a guardian advocate filed with the Circuit Court. [x] Refusing to provide express and informed consent to voluntary admission but is competent to provide express and informed consent for treatment. The person must be discharged or transferred to involuntary status. Form shall be completed within 24 hours of a person's arrival at the receiving facility and filed in the clinical record of each person: 1. Admitted on a voluntary basis 2. Permitted to provide express and informed consent to his/her own treatment 3. Allowed to transfer from involuntary to voluntary status 4. Prior to permitting a person to consent to his or her own treatment after having been previously found incompetent to consent to treatment. History of Present Illness Capacity: Has Capacity (to consent to medications) Psych Chief Complaint: Overdose HPI From Dr. Rice's consultation note: The patient is a 36-year-old man, domiciled alone in [facility], single, unemployed, with psychiatric history of depression, about 3 previous psychiatric hospitalizations related with alcohol use disorder, self cutting behavior, patient was seen by me in July 16 with a very similar presentation , and he was psychiatrically cleared, he says that lives with his father who is a quadriplegic who has lots of isopropyl alcohol according to the patient . The patient decided to drink 3 bottles of 70% isopropyl alcohol in order to kill himself. Consulted to psychiatry to address potential suicidal attempt. On psychiatric evaluation today the patient is irritable, superficially cooperative. Patient recognized me immediately from our previous encounter. Patient says that he did not overdose, he just lied to the police to make it to the hospital. He says that the reason he decided to lay to the police to come to the hospital is because "by saying that I try to commit suicide I would commit myself to the hospital and at would be safe", when I asked came safe of what? The patient says that he has a brother who came from [place] and has been looking for him to kill him. He says that his brother is accompanied "with all other for a bad guys" and they're all looking for him to kill him. At this moment he denies suicidal and homicidal ideation, he denies visual and auditory hallucinations. The patient seems to be internally preoccupied and paranoid. When I started to inquire more about this history about his brother the patient became verbally hostile, agitated, and is started to request to be discharged immediately. On my exam today 07/29: Patient seen and examined with nurse. Chart reviewed. Case discussed with nursing staff. On my examination today, the patient denies making any sort of ingestion. He says that he malingered his presenting overdose in order to get a shower. He did not expect that it would result in him getting admitted to the inpatient psychiatric unit. He says that he bought a bottle of wine and drank it prior to admission so that he would be intoxicated on presentation here to give the appearance of isopropanol ingestion. When I point out that he presented in June under similar circumstances, he says that he malingered that overdose as well to get a shower. He denies depressive symptoms and affect seems generally euthymic. He denies any suicidal or homicidal ideation, although it is unclear whether the patient is reliable to contract for safety. No hypomanic/manic symptoms. He denies any audiovisual hallucinations. I can elicit no delusional material. The remainder of the psychiatric ROS is negative. No physical complaints. Past psychiatric history: The patient denies a history of psychiatric diagnosis. He denies a history of inpatient or outpatient psychiatric treatment. He denies a history of suicide attempts. He denies a history of violent behavior. Family history: The patient denies a family history of serious mental illness or suicide. Chemical dependency history: The patient reports that he drinks a 12 pack of beer daily. His longest sober time is on the order of days. He denies any withdrawal symptoms presently. He denies any history of DTs or seizures. No other substance use reported. Social history: The patient reports that he recently got a job at a [employer]ant and is quite eager to be discharged so that he can go to work reportedly. He is single with no children. He denies any or legal history. Denies any access to guns or firearms. He describes his latter-day as "messianic." He denies any history of physical, verbal or sexual abuse. He does provide the name of his cousin Elizabeth Thao [phone] as a source of collateral, and I have asked the counselor to try to obtain collateral from Ms. Thao. Review of Systems Except as stated in HPI: all other systems reviewed are Neg Past Family Social History Coded Allergies: No Known Allergies (Unverified Adverse Reaction, Unknown, 07/15/17) Past Medical History Patient reports a history of hypertension but says that he takes no medications on an outpatient basis. No Active Prescriptions or Reported Meds Current Medications Medications (Trade) Dose Ordered Sig/Sherrill Route Start Time Stop Time Status Last Admin (Ativan) 1 mg Q6H PRN PO 07/28/17 16:00 (Ativan Inj) 1 mg Q6H PRN IM 07/28/17 16:00 (Tylenol) 650 mg Q4H PRN PO 07/28/17 16:00 (Milk Of Magnesia Liq) 30 ml DAILY PRN PO 07/28/17 16:00 (Mag-Al Plus Susp Liq) 30 ml Q6H PRN PO 07/28/17 16:00 (Habitrol 21 Mg Patch.24 Hr) 1 patch DAILY T-DERMAL 07/28/17 16:00 07/29/17 09:00 (Romazicon Inj) 0.2 mg Q1M PRN IV PUSH 07/28/17 16:00 (Ativan) 1 mg Q4H PRN PO 07/28/17 16:00 (Ativan Inj) 1 mg Q4H PRN IV PUSH 07/28/17 16:00 (Ativan) 2 mg Q2H PRN PO 07/28/17 16:00 (Ativan Inj) 2 mg Q2H PRN IV PUSH 07/28/17 16:00 (Ativan Inj) 2 mg Q1H PRN IV PUSH 07/28/17 16:00 (Ativan Inj) 2 mg Q15M PRN IV PUSH 07/28/17 16:00 Miscellaneous Information 1 HS T-DERMAL 07/28/17 21:00 Patient's Strengths (min. 2) In a monitored setting. Verbally fluent. Physical Exam Physical examination completed by primary team on medical floor. On my examination today, the patient appears to be in no acute physical distress. No motor abnormalities noted. No hand tremor, no diaphoresis, no mydriasis, no tongue fasciculations, no other signs of GABAergic withdrawal. Labs and vitals reviewed: Vital Signs Vital Signs Date Time Temp Pulse Resp B/P (MAP) Pulse Ox O2 Delivery O2 Flow Rate FiO2 07/29/17 06:13 97.5 75 18 155/96 (115) 99 Lab Results Item Value Date Time White Blood Count 5.9 TH/MM3 07/28/17 0431 Hemoglobin 15.5 GM/DL 07/28/17 0431 Platelet Count 162 TH/MM3 07/28/17 0431 Sodium Level 139 MEQ/L 07/29/17 0700 Potassium Level 3.7 MEQ/L 07/29/17 07 Chloride Level 103 MEQ/L 07/29/17 07 Carbon Dioxide Level 28.0 MEQ/L 07/29/17 0700 Blood Urea Nitrogen 7 MG/DL 07/29/17 0700 Creatinine 0.84 MG/DL 07/29/17 0700 Estimat Glomerular Filtration Rate 103 ML/MIN 07/29/17 0700 Aspartate Amino Transf (AST/SGOT) 66 U/L H 07/28/17 0431 Alanine Aminotransferase (ALT/SGPT) 148 U/L H 07/28/17 0431 Alkaline Phosphatase 66 U/L 07/28/17 0431 Thyroid Stimulating Hormone 3rd Gen 0.720 uIU/ML 07/27/17 0140 Urine Cannabinoids Screen POS H 07/27/17 0203 B-Hydroxybutyrate 0.08 MMOL/L # 07/27/17 2144 Ethyl Alcohol Level LESS THAN 3 MG/DL 07/27/17 2144 Ethyl Alcohol Level 217 MG/DL H 07/27/17 1000 Mental Status Examination Appearance: Appropriate Consciousness: Alert Orientation: x4 Motor Activity: Normal gait Speech: Unremarkable Language: Adequate Fund of Knowledge: Adequate Attention and Concentration: Adequate Memory: Unremarkable Mood: Appropriate Affect: Appropriate Thought Process & Associations: Intact Thought Content: Appropriate Hallucination Type: None Delusion Type: None Suicidal Ideation: No (unclear the patient is reliable to contract for safety) Suicidal Plan: No Suicidal Intention: No Homicidal Ideation: No (unclear the patient is reliable contract for safety) Homicidal Plan: No Homicidal Intention: No Mental Status Exam Remarks Insight and judgment are presently unclear Assessment & Plan Problem List: (1) Adjustment disorder with mixed disturbance of emotions and conduct ICD Codes: F43.25 - Adjustment disorder with mixed disturbance of emotions and conduct (2) Alcohol abuse ICD Codes: F10.10 - Alcohol abuse, uncomplicated Assessment & Plan 36-year-old male with psychiatric history as detailed above who is presently admitted to the inpatient psychiatric unit under a [place] act. This is the patient's second reported isopropanol overdose in the last month. He insists to me today that he did not make an isopropanol ingestion and that he was just malingering said ingestion to get a shower. He certainly does not appear depressed now, nor is there any evidence of the psychotic material elicited by Dr. Rice. However, given the recurrent nature of the problem I think it is prudent to retain the patient on the inpatient unit for observation and to allow for the collection of collateral information. Admit inpatient. Patient declining voluntary admission. Continue to observe under [place] act for now. Patient declining psychotropic medications, and it is unclear whether any are indicated. CIWA scale with Ativan for the management of any withdrawal. Thiamine and folate. Seizure precautions. Consult to the hospitalist to continue to follow from the medical floor. Vitals every shift. Counselor to see. Collateral information. Disposition planning. Estimated length of stay: 3-5 days. Jose Hollingsworth MD Jul 29, 2017 11:34
[2017-07-29] MEDS ORDERED: cloNIDine HCL 0.1 MG TAB PO PRN (14:00)
[2017-07-29] MEDS ORDERED: MULTIVITAMIN TAB PO ONE (14:00)
--- NOTE | 2017-07-29 14:37 | PD.CONS ---
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 Patient had been cleared by them and transferred to inpatient psychiatry and we have now been consulted regarding help with his medical management for alcohol abuse and withdrawals and hypertension. His past medical history includes alcohol abuse. Patient drinks between 6 and 12 beers daily. Patient lives with his father who is a quadriplegic who has lots of isopropyl alcohol. He decided to drink 3 bottles of 70% isopropyl alcohol similar to an episode 07/16/2017 and was therefore admitted to the ICU and monitored by critical care and poison control. He has been cleared by them and now discharged in to inpatient psychiatry for evaluation. He did this because he wanted to "end it". Patient's alcohol level was 373. Patient's LFTs are still elevated. Patient was medically cleared by with control and sent into inpatient psychiatry. On July 28, 2017 We have been asked to consult regarding help with medical management Review of Systems Constitutional: DENIES: Diaphoretic episodes, Fatigue, Fever, Weight gain, Weight loss, Chills, Dizziness, Change in appetite, Night Sweats Endocrine: DENIES: Heat/cold intolerance, Polydipsia, Polyuria, Polyphagia Eyes: DENIES: Blurred vision, Diplopia, Eye inflammation, Eye pain, Vision loss , Photosensitivity, Double Vision Ears, nose, mouth, throat: DENIES: Tinnitus, Hearing loss, Vertigo, Nasal discharge, Oral lesions, Throat pain, Hoarseness, Ear Pain, Running Nose, Epistaxis, Sinus Pain, Toothache, Odynophagia Respiratory: DENIES: Apneas, Cough, Snoring, Wheezing, Hemoptysis, Sputum production, Shortness of breath Cardiovascular: DENIES: Chest pain, Palpitations, Syncope, Dyspnea on Exertion , PND, Lower Extremity Edema, Orthopnea, Claudication Gastrointestinal: DENIES: Abdominal pain, Black stools, Bloody stools, Constipation, Diarrhea, Nausea, Vomiting, Difficulty Swallowing Musculoskeletal: DENIES: Joint pain, Muscle aches, Stiffness, Joint Swelling, Back pain, Neck pain Integumentary: DENIES: Abnormal pigmentation, Nail changes, Pruritus, Rash Hematologic/lymphatic: DENIES: Bruising, Lymphadenopathy Immunologic/allergic: DENIES: Eczema, Urticaria Neurologic: DENIES: Abnormal gait, Headache, Localized weakness, Paresthesias, Seizures, Speech Problems, Tremor, Poor Balance Psychiatric: COMPLAINS OF: Anxiety, Confusion, Mood changes, Depression, Agitation, DENIES: Hallucinations Except as stated in HPI: all other systems reviewed are Neg Past Family Social History Allergies: Coded Allergies: No Known Allergies (Unverified Adverse Reaction, Unknown, 07/15/17) Past Medical History Extensive alcohol abuse Multiple attempts at suicide if he is actually attempted them Hypertension Psychiatric disorders Seizure disorder probably due to alcohol withdrawals Past Surgical History Appendectomy Reported Medications Reported Meds & Active Scripts Active No Active Prescriptions or Reported Medications Active Ordered Medications Current Medications Lorazepam (Ativan) 1 mg Q6H PRN PO MODERATE TO SEVERE ANXIETY; Start 07/28/17 at 16:00; Stop 07/29/17 at 12:55; Status DC Lorazepam (Ativan Inj) 1 mg Q6H PRN IM MODERATE TO SEVERE ANXIETY; Start at 16:00; Stop 07/29/17 at 12:55; Status DC Lorazepam (Ativan) 0.5 mg Q12H PRN PO MODERATE TO SEVERE ANXIETY; Start at 16:00; Stop 07/28/17 at 16:32; Status DC Lorazepam (Ativan Inj) 0.5 mg Q12H PRN IM MODERATE TO SEVERE ANXIETY; Start 07/28/17 at 16:00; Stop 07/28/17 at 16:32; Status DC Acetaminophen (Tylenol) 650 mg Q4H PRN PO Pain 1-5 or Temp >101F; Start at 16:00 Magnesium Hydroxide (Milk Of Magnesia Liq) 30 ml DAILY PRN PO CONSTIPATION; Start 07/28/17 at 16:00 Al Hydrox/Mg Hydrox/Simethicone (Mag-Al Plus Susp Liq) 30 ml Q6H PRN PO DYSPEPSIA; Start 07/28/17 at 16:00 Nicotine (Habitrol 21 Mg Patch.24 Hr) 1 patch DAILY T-DERMAL Last administered on 07/29/17at 09:00; Start 07/28/17 at 16:00 Flumazenil (Romazicon Inj) 0.2 mg Q1M PRN IV PUSH SEE LABEL COMMENTS; Start 07/28/17 at 16:00 Lorazepam (Ativan) 1 mg Q4H PRN PO CIWA 8 - 10; Start 07/28/17 at 16:00 Lorazepam (Ativan Inj) 1 mg Q4H PRN IV PUSH CIWA 8 - 10; Start 07/28/17 at 16:00 Lorazepam (Ativan) 2 mg Q2H PRN PO CIWA 11-14; Start 07/28/17 at 16:00 Lorazepam (Ativan Inj) 2 mg Q2H PRN IV PUSH CIWA 11-14; Start 07/28/17 at 16:00 Lorazepam (Ativan Inj) 2 mg Q1H PRN IV PUSH CIWA 15-20; Start 07/28/17 at 16:00 Lorazepam (Ativan Inj) 2 mg Q15M PRN IV PUSH CIWA > 20; Start 07/28/17 at 16:00 Miscellaneous Information 1 HS T-DERMAL ; Start 07/28/17 at 21:00 Thiamine HCl (Vitamin B1) 100 mg DAILY PO ; Start 07/30/17 at 09:00 Folic Acid (Folate) 1 mg DAILY PO ; Start 07/30/17 at 09:00 Multivitamins (Theragran) 1 tab ONCE ONCE PO ; Start 07/29/17 at 14:00; Stop 07/29/17 at 14:01; Status DC Multivitamins (Theragran) 1 tab DAILY PO ; Start 07/30/17 at 09:00 Clonidine (Catapres) 0.1 mg Q4H PRN PO SBP>160, DBP>90; Start 07/29/17 at 14:00 Family History Tobacco abuse Father has quadriplegia Social History Smokes 1 pack to half a pack daily Alcohol abuse at least a 6-12 pack of beer every day if not more Marijuana use Cocaine use also Physical Exam Vital Signs Vital Signs Date Time Temp Pulse Resp B/P (MAP) Pulse Ox O2 Delivery O2 Flow Rate FiO2 07/29/17 06:13 97.5 75 18 155/96 (115) 99 3/7/18 15:47 98.0 78 18 139/93 (108) 99 Physical Exam GENERAL: This is a well-nourished, well-developed patient, in no apparent distress. SKIN: No rashes, ecchymoses or lesions. Cool and dry. HEAD: Atraumatic. Normocephalic. No temporal or scalp tenderness. EYES: Pupils equal round and reactive. Extraocular motions intact. No scleral icterus. No injection or drainage. ENT: Nose without bleeding, purulent drainage or septal hematoma. Throat without erythema, tonsillar hypertrophy or exudate. Uvula midline. Airway patent. NECK: Trachea midline. No JVD or lymphadenopathy. Supple, nontender, no meningeal signs. CARDIOVASCULAR: Regular rate and rhythm without murmurs, gallops, or rubs. RESPIRATORY: Coarse breath sounds bilaterally. Breath sounds equal bilaterally. Scattered rhonchi's bilaterally GASTROINTESTINAL: Abdomen soft, non-tender, nondistended. No hepato-splenomegaly , or palpable masses. No guarding. MUSCULOSKELETAL: Extremities without clubbing, cyanosis, or edema. No joint tenderness, effusion, or edema noted. No calf tenderness. Negative Homans sign bilaterally. NEUROLOGICAL: Awake and alert. Cranial nerves II through XII intact. Motor and sensory grossly within normal limits. Five out of 5 muscle strength in all muscle groups. Normal speech. Insight and judgment is limited Mood and behavior is inappropriate Laboratory Laboratory Tests Test 07/29/17 07:00 Blood Urea Nitrogen 7 Creatinine 0.84 Random Glucose 91 Calcium Level 8.2 Sodium Level 139 Potassium Level 3.7 Chloride Level 103 Carbon Dioxide Level 28.0 Anion Gap 8 Estimat Glomerular Filtration Rate 103 Triglycerides Level 110 Cholesterol Level 172 LDL Cholesterol 83 HDL Cholesterol 67.1 Cholesterol/HDL Ratio 2.56 Result Diagram: 07/29/17 0700 Assessment and Plan Assessment and Plan Alcohol withdrawals with chronic alcohol abuse Continue on multivitamin, thiamine, folic acid daily Continue on Catapres 0.1 mg every 4 hours as needed for high blood pressure Continue on CIWA protocol with Ativan Hypertension continue on Catapres as needed Tobacco abuse --smoking cessation recommend NicoDerm patch Elevated LFTs suspect secondary to chronic alcohol abuse recommend alcohol cessation We will trend down if he stops drinking As they have while he is here Psychiatric disorder will defer to psychiatry for their treatment A.m. labs Replete potassium and magnesium as needed and phosphorus Discussed with patient and RN Code Status Full code Discussed Condition With Discussed with patient and RN Jose C Yarbrough DO Jul 29, 2017 14:37
[2017-07-29 16:59] LABS: HEMOGLOBIN A1C 5.4 % (4.3-6.0)
[2017-07-29 18:22] VITALS: BP 156/84; PULSE 74; RESP 18; TEMP 97.8; O2SAT 100
[2017-07-29] MEDS: REMOVE OLD NICODERM (NICOTINE) PATCH T-DERMAL SCH (21:00)
[2017-07-30 05:52] VITALS: BP 124/72; PULSE 63; RESP 16; TEMP 96.2; O2SAT 99
[2017-07-30] MEDS: NICOTINE 21 MG/24 HR PATCH T-DERMAL SCH (08:57)
[2017-07-30] MEDS ORDERED: FOLIC ACID 1 MG TAB PO SCH (09:00)
[2017-07-30] MEDS ORDERED: MULTIVITAMIN TAB PO SCH (09:00)
[2017-07-30] MEDS ORDERED: THIAMINE HCL 100 MG TAB PO SCH (09:00)
[2017-07-30 10:06] LABS: AUTOMATED NEUTROPHIL # 4.5 TH/MM3 (1.8-7.7); BASOPHIL % 0.6 % (0.0-2.0); EOSINOPHIL # 0.2 TH/MM3 (0-0.4); EOSINOPHIL % 2.3 % (0.0-4.0); HEMATOCRIT 49.3 % (39.0-51.0); HEMOGLOBIN 17.3 GM/DL (13.0-17.0); LYMPH % 21.9 % (9.0-44.0); LYMPHOCYTE # 1.6 TH/MM3 (1.0-4.8); MEAN CELL VOLUME 97.5 FL (80.0-100.0); MEAN CORPUSCULAR HEMOGLOBIN 34.1 PG (27.0-34.0); MONO % 14.7 % (0.0-8.0); MONOCYTE # 1.1 TH/MM3 (0-0.9); NEUT % 60.5 % (16.0-70.0); PLATELET COUNT 215 TH/MM3 (150-450); RED BLOOD COUNT 5.06 MIL/MM3 (4.50-5.90); RED CELL DISTRIBUTION WIDTH 13.4 % (11.6-17.2); WHITE BLOOD COUNT 7.4 TH/MM3 (4.0-11.0)
[2017-07-30 10:20] LABS: AST (GOT) 154 U/L (15-37); BICARBONATE 28.3 MEQ/L (21.0-32.0); BLOOD UREA NITROGEN 10 MG/DL (7-18); CALCIUM 9.4 MG/DL (8.5-10.1); CHLORIDE 103 MEQ/L (98-107); CREATININE 0.95 MG/DL (0.60-1.30); GLOMERULAR FILTRATION RATE 89 ML/MIN (>89); GLUCOSE,RANDOM 89 MG/DL (74-106); SODIUM (NA) 139 MEQ/L (136-145)
[2017-07-30 10:22] LABS: ALT (GPT) 226 U/L (12-78); PHOSPHORUS 4.1 MG/DL (2.5-4.9)
[2017-07-30 10:23] LABS: ALKALINE PHOSPHATASE 74 U/L (45-117); TOTAL BILIRUBIN ADULT 0.9 MG/DL (0.2-1.0)
[2017-07-30] MEDS ORDERED: THIA100 PO (12:26)
[2017-07-30] MEDS ORDERED: FOLI1TAB6 PO (12:26)
--- NOTE | 2017-07-30 12:26 | HHI.DS ---
Psychiatry Discharge Summary Inpatient Psychiatric care?: Yes Advance Directive: No Reason Not Provided: Due to Patient Condition Mental Health AdvanceDirective: No Health Care Proxy: No Admission Admission Date Jul 28, 2017 at 15:39 Admission Diagnosis: (1) Adjustment disorder with mixed disturbance of emotions and conduct ICD Code: F43.25 - Adjustment disorder with mixed disturbance of emotions and conduct (2) Alcohol abuse ICD Code: F10.10 - Alcohol abuse, uncomplicated Brief History From Dr. Rice's consultation note: The patient is a 36-year-old man, domiciled alone in [facility], single, unemployed, with psychiatric history of depression, about 3 previous psychiatric hospitalizations related with alcohol use disorder, self cutting behavior, patient was seen by me in July 16 with a very similar presentation , and he was psychiatrically cleared, he says that lives with his father who is a quadriplegic who has lots of isopropyl alcohol according to the patient . The patient decided to drink 3 bottles of 70% isopropyl alcohol in order to kill himself. Consulted to psychiatry to address potential suicidal attempt. On psychiatric evaluation today the patient is irritable, superficially cooperative. Patient recognized me immediately from our previous encounter. Patient says that he did not overdose, he just lied to the police to make it to the hospital. He says that the reason he decided to lay to the police to come to the hospital is because "by saying that I try to commit suicide I would commit myself to the hospital and at would be safe", when I asked came safe of what? The patient says that he has a brother who came from [place] and has been looking for him to kill him. He says that his brother is accompanied "with all other for a bad guys" and they're all looking for him to kill him. At this moment he denies suicidal and homicidal ideation, he denies visual and auditory hallucinations. The patient seems to be internally preoccupied and paranoid. When I started to inquire more about this history about his brother the patient became verbally hostile, agitated, and is started to request to be discharged immediately. On my exam today 07/29: Patient seen and examined with nurse. Chart reviewed. Case discussed with nursing staff. On my examination today, the patient denies making any sort of ingestion. He says that he malingered his presenting overdose in order to get a shower. He did not expect that it would result in him getting admitted to the inpatient psychiatric unit. He says that he bought a bottle of wine and drank it prior to admission so that he would be intoxicated on presentation here to give the appearance of isopropanol ingestion. When I point out that he presented in June under similar circumstances, he says that he malingered that overdose as well to get a shower. He denies depressive symptoms and affect seems generally euthymic. He denies any suicidal or homicidal ideation, although it is unclear whether the patient is reliable to contract for safety. No hypomanic/manic symptoms. He denies any audiovisual hallucinations. I can elicit no delusional material. The remainder of the psychiatric ROS is negative. No physical complaints. Past psychiatric history: The patient denies a history of psychiatric diagnosis. He denies a history of inpatient or outpatient psychiatric treatment. He denies a history of suicide attempts. He denies a history of violent behavior. Family history: The patient denies a family history of serious mental illness or suicide. Chemical dependency history: The patient reports that he drinks a 12 pack of beer daily. His longest sober time is on the order of days. He denies any withdrawal symptoms presently. He denies any history of DTs or seizures. No other substance use reported. 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 He is single with no children. He denies any or legal history. Denies any access to guns or firearms. He describes his amish as "messianic." He denies any history of physical, verbal or sexual abuse. He does provide the name of his cousin Elizabeth Thao [phone] as a source of collateral, and I have asked the counselor to try to obtain collateral from Ms. Thao. Tobacco Use In Past 30 Days: 5 or More Cigarettes/Day Alcohol Use: 4 or More Times Per Week Hospital Course Patient was admitted to a locked, inpatient psychiatric unit. A general medical consultation was obtained. Appropriate precautions were in place throughout patient's hospital stay. Patient was seen and examined on the unit by psychiatry and also visited by counselor. Patient declined any psychotropic medications. There was no evidence of any suicidality or homicidality on the inpatient unit. The patient remained in good behavioral control. Counselor and myself made efforts to obtain collateral information. I have tried to reach patient's cousin, Ms. Thao, myself today without success. A half-brother , Mr. Doe, presented to the department yesterday but left no contact information where he could be reached. A brother, Mr. Huitron, is listed in the EMR, but the contact number is the same as Ms. Thao. Patient is not forthcoming with any other sources of collateral information. On the day of discharge: Patient seen and examined. Chart reviewed. Case discussed with nursing staff. No behavioral issues noted overnight. Case discussed in treatment team. On my examination today, the patient is requesting discharge from the inpatient psychiatric unit today. His Cavanaugh act will shortly. He denies any suicidal or homicidal ideation, intent or plan on direct questioning and contracts for safety. He continues to insist that he malingered his presenting reported isopropanol ingestion. I can elicit no depressive or hypomanic/manic symptoms presently. He is future oriented and has a plan to go stay in [place] and pursue some sort of sober living program there, although I tend to question the veracity of this plan. He denies any audiovisual hallucinations. I can elicit no delusional material. When I inquire about the more frankly psychotic material that he shared with Dr. Rice, the patient insists that he was still somewhat intoxicated at the time. There is no evidence of any impairment in reality construction in this patient at this time. He has no physical complaints and denies any symptoms of withdrawal. Weighing the relevant factors and based on the evidence available to me now, I cycle liaison that the patient does not meet criteria for involuntary psychiatric hospitalization at this time. The patient does not present an imminent risk of harm to self or others, and there is no evidence of any self- care deficit presently. I do think the patient is evasive, and I suspect there is more to this case than he is letting on. I have strongly recommended to the patient that he remain on the unit voluntarily for further observation, but he has declined. I have no basis to retain him over his objection at this point. I will discharge him AGAINST MEDICAL ADVICE. Patient is to follow-up with primary care. I have counseled the patient to abstain from any substances of abuse. I have counseled the patient regarding warning signs for need to return to the psychiatric emergency room as part of the general safety plan. Results Blood Pressure 124 / 72 Vital Signs Date Time Temp Pulse Resp B/P (MAP) Pulse Ox O2 Delivery O2 Flow Rate FiO2 07/30/17 05:52 96.2 63 16 124/72 (89) 99 Laboratory Tests Test 07/29/17 07:00 07/30/17 09:12 Calcium Level 8.2 MG/DL (8.5-10.1) HDL Cholesterol 67.1 MG/DL (40.0-60.0) Hemoglobin 17.3 GM/DL (13.0-17.0) Mean Corpuscular Hemoglobin 34.1 PG (27.0-34.0) Monocytes (%) (Auto) 14.7 % (0.0-8.0) Monocytes # (Auto) 1.1 TH/MM3 (0-0.9) Aspartate Amino Transf (AST/SGOT) 154 U/L (15-37) Alanine Aminotransferase (ALT/SGPT) 226 U/L (12-78) Laboratory Results Test 07/29/17 07:00 Cholesterol Level 172 MG/DL (120-200) HDL Cholesterol 67.1 MG/DL (40.0-60.0) Hemoglobin A1c 5.4 % (4.3-6.0) LDL Cholesterol 83 MG/DL (0-99) Triglycerides Level 110 MG/DL (42-150) Summary of Procedures None done Imaging None done Pending results at discharge: No Medications # of Antipsychotic meds at D/C: 0 Approp Antipsych med options 1 - Minimum of three failed multiple trials of monotherapy. 2 - Documented plan to taper to monotherapy due to previous use of multiple meds OR cross-taper in progress at D/C. 3 - Documentation of augmentation of Clozapine. 4 - Justification other than those listed in allowable values 1-3, document here : Discharge Discharge Date: Jul 30, 2017 Discharge Diagnosis: (1) Adjustment disorder with mixed disturbance of emotions and conduct Diagnosis: Principal ICD Code: F43.25 - Adjustment disorder with mixed disturbance of emotions and conduct (2) Alcohol abuse Diagnosis: Secondary (counseled to quit) ICD Code: F10.10 - Alcohol abuse, uncomplicated Pt Condition on Discharge: Guarded (because AMA discharge) Discharge Disposition: Discharge Home Discharge Instructions Diet Instructions: As Tolerated, No Restrictions Activities you can perform: Weight Bearing as Gage Scheduled Appointment: as per counselor's notes New Orders: HEPATIC FUNCTION NUNES - 1 Week New Medications: Folic Acid (Folic Acid) 1 Mg Tablet 1 MG PO DAILY for Nutritional Supplement for 15 Days, #15 TAB 1 Refill Thiamine HCl (Gnp Vitamin B-1) 100 Mg Tab 100 MG PO DAILY for Nutritional Supplement for 15 Days, #15 TAB 1 Refill Discharge Time > 30 minutes Mental Status Examination Appearance: Appropriate Consciousness: Alert Orientation: x4 Motor Activity: Normal gait, Other (no motor abnormalities noted. No signs of alcohol withdrawal noted.) Speech: Unremarkable Language: Adequate Fund of Knowledge: Adequate Attention and Concentration: Adequate Memory: Unremarkable Mood: Appropriate Affect: Appropriate Thought Process & Associations: Intact, Logical, Linear Thought Content: Appropriate Hallucination Type: None Delusion Type: None Suicidal Ideation: No Suicidal Plan: No Suicidal Intention: No Homicidal Ideation: No Homicidal Plan: No Homicidal Intention: No Mental Status Exam Remarks Insight and judgment are fair at best Discharge/Advance Care Plan Health Problems: (1) Adjustment disorder with mixed disturbance of emotions and conduct (2) Alcohol abuse Goals to promote your health * To prevent worsening of your condition and complications * To maintain your health at the optimal level Directions to meet your goals Take your medications as prescribed Follow your dietary instruction Follow activity as directed Keep your appointments as scheduled Take your immunizations and boosters as scheduled If your symptoms worsen call your PCP, if no PCP go to Urgent Care Center or Emergency Room For 14/12 questions related to your inpatient stay or results of tests pending at discharge, please contact Dr. Jose Hollingsworth at Smoking is Dangerous to Your Health. Avoid second hand smoking Jose Hollingsworth MD Jul 30, 2017 12:26
--- NOTE | 2017-07-30 15:00 | PD.TTN ---
Patient Problems 1. Discharge planning 2. Medication compliance 3. Knowledge deficit 4. Lack of coping skills Progress Toward Goals Provider Present: Dr. Mary Hollingsworth Provider Input: `Was drunk on admission, paranoid, homeless (drank rubbing alcohol) Nurse(s) Present: Nurse not present Psychiatric Counselors Present: Mague Lindsey LCSW Psych Therapist Input: Need collateral research disposition Group Spec/RT/OT/BECK Present: Melida Acevedo GPS, Jeferson Esposito, OT Group Spec/RT/OT/BECK Input: New admission Melida Acevedo Jul 30, 2017 15:00
== END 2017-07-30 15:30 | disposition left against medical advice (07) | DRG 882 ==
LOC: H270 15:39
PROVIDERS: ADMIT Psychiatry & Neurology Psychiatry; ATTEND Psychiatry & Neurology Psychiatry
DX: F43.25 Adjustment disorder with mixed disturbance of emotions and conduct (principal); G40.909 Epilepsy, unspecified, not intractable, without status epilepticus; I10 Essential (primary) hypertension; F10.230 Alcohol dependence with withdrawal, uncomplicated; F10.24 Alcohol dependence with alcohol-induced mood disorder; F17.210 Nicotine dependence, cigarettes, uncomplicated; F12.10 Cannabis abuse, uncomplicated; F32.9 Major depressive disorder, single episode, unspecified; Z91.5 Personal history of self-harm
CPT/HCPCS: 80048; 80053; 80061; 83036; 83735; 84100; 85025